=== PATIENT | female | born 1985 | race Caucasian/White ===

== ENCOUNTER 2021-03-30 17:48 | Observation (INO) | payer OTHER, SELFPAY ==
[2021-03-30 18:20] VITALS: BP 105/71; PULSE 89
--- NOTE | 2021-03-30 19:37 | LDADM ---
This patient, Amaya Renee, was admitted to [facility] on 03/30/21 at 17:48. Plans for labor, pain management and were discussed with patient. Patient/family oriented to hospital policies and general routines including ID bracelet, bed and alarms, visiting hours, pain management, procedures, bathroom and other care routines, personal items, smoking policy, room service/diet and guest tray routines, infant security routines, and visiting hours. Patient/Family are encouraged to report perceived risks to care and to ask questions if they do not understand what they are told or what they should do. See OBIX for further documentation.
--- NOTE | 2021-04-06 13:03 | PM.OBTRLD ---
OB - Triage/Final Diagnosis Visit Information Comments/Additional reasons for admission: I have assessed the risk for this patient, Amaya Villa Appleeverardo, and determined that she would benefit from observation care. Final Diagnosis (1) False labor: Code(s): O47.9 - False labor, unspecified Status: Acute
== END 2021-03-30 19:34 | disposition home or self-care (01) ==
PROVIDERS: Admitting Provider Obstetrics & Gynecology; Visit Provider Obstetrics & Gynecology
DX: O47.9 False labor, unspecified (principal); Z3A.00 Weeks of gestation of pregnancy not specified
CPT/HCPCS: G0378; G0379

== ENCOUNTER 2021-04-20 15:31 | Outpatient (RCR) | payer OTHER, SELFPAY ==
[2021-04-13 15:08] VITALS: BP 117/77; PULSE 69
[2021-04-20 16:54] VITALS: BP 110/74; PULSE 80
== END 2021-05-05 10:08 | disposition home or self-care (01) ==
LOC: ANHOBOP 15:31
PROVIDERS: Visit Provider Obstetrics & Gynecology
DX: O24.419 Gestational diabetes mellitus in pregnancy, unspecified control (principal); Z3A.32 32 weeks gestation of pregnancy; Z3A.33 33 weeks gestation of pregnancy
CPT/HCPCS: 59025

== ENCOUNTER 2021-04-22 16:11 | Outpatient (CLI) | payer OTHER, SELFPAY ==
[2021-04-22 16:27] VITALS: BP 119/71; PULSE 91
[2021-04-22 17:07] VITALS: BP 119/71; PULSE 91
--- NOTE | 2021-04-22 17:12 | PC.NURSE ---
1649- called,informed pt came in stating she stood up from sitting in a chair and noticed the chair was wet so she came in to be tested for leaking fluid. Pt stated when she got here that she felt sweaty. ROM plus negative. Instructions given to instruct pt to wear a pad and if it is wet to come back in and follow up with in office by Monday.
== END 2021-04-22 17:00 | disposition home or self-care (01) ==
LOC: ANHOBOP 16:18 → ANHOBPP 16:19
PROVIDERS: Visit Provider Obstetrics & Gynecology
DX: O42.913 Preterm premature rupture of membranes, unspecified as to length of time between rupture and onset of labor, third trimester (principal); Z3A.33 33 weeks gestation of pregnancy
CPT/HCPCS: 59025; 84112; 99199

== ENCOUNTER 2021-04-27 01:00 | Inpatient (IN) | payer OTHER, SELFPAY ==
[2021-04-27] VITALS (21 sets, daily range): BP systolic 94–136; BP diastolic 55–81; PULSE 59–106; RESP 18; TEMP 36.2–36.4; O2SAT 88–100; BMI 34.4
--- NOTE | 2021-04-27 01:32 | LDADM ---
This patient, Amaya Renee, was admitted to Labor/Delivery/Recovery 104 on 04/27/21 at 01:00. Plans for labor, pain management and were discussed with patient. Patient/family oriented to hospital policies and general routines including ID bracelet, bed and alarms, visiting hours, pain management, procedures, bathroom and other care routines, personal items, smoking policy, room service/diet and guest tray routines, security routines, and visiting hours. Patient/Family are encouraged to report perceived risks to care and to ask questions if they do not understand what they are told or what they should do. See OBIX for further documentation.
[2021-04-27 01:48] LABS: Glucose Point of Care 89 mg/dl (65-105)
[2021-04-27 01:55] LABS: Basophils Percent Auto 0.1 % (0.2-1.2); Eosinophils Absolute Auto 0.1 K/mm3 (0-0.3); Eosinophils Percent Auto 1.3 % (0-4.4); Hematocrit 37.6 % (37.0-47.0); Hemoglobin 12.8 g/dL (12.0-15.0); Immature Granulocyte Absolute 0.04 K/mm3 (0.00-0.031); Immature Granulocyte Percent A 0.6 % (0-0.5); Lymphocytes Absolute Auto 1.79 K/mm3 (0.9-3.2); Lymphocytes Percent Auto 26.2 % (18.3-44.2); Mean Platelet Volume 10.5 fl (7.4-10.4); Monocytes Absolute Auto 0.6 K/mm3 (0.1-0.6); Monocytes Percent Auto 8.1 % (2.6-8.5); Neutrophils Absolute Auto 4.3 K/mm3 (1.3-6.7); Neutrophils Percent Auto 63.7 % (45.5-73.1); Platelet Count Result 165 k/mm3 (150-375); Red Cell Distribution Width 13.2 % (11.5-14.5); White Blood Count 6.8 K/mm3 (4.5-10.0)
[2021-04-27 02:04] LABS: Anion Gap 6 mmol/L (8-16); Blood Urea Nitrogen 8 mg/dL (7-17); Calcium 9.5 mg/dL (8.4-10.2); Carbon Dioxide 20 mmol/L (22-30); Chloride 108 mmol/L (98-107); Estimated CRCL calculation 123 ml/min; Estimated Glomerular Filt Rate > 60; Glucose 93 mg/dL (65-110); Potassium 3.4 mmol/L (3.4-5.0); Sodium 134 mmol/L (137-145)
[2021-04-27] MEDS: AMPICILLIN 2 GM/NS 100 ML 2 GM/100 ML BAG IVPB (02:05)
[2021-04-27] MEDS: LACTATED RINGERS 1,000 ML 125 ML IV CONT (02:05)
[2021-04-27] MEDS: BETAMETHASONE SOD PHOS/ACETATE 30 MG/5 ML VIAL 12 MG IM (02:05)
[2021-04-27 02:50] LABS: HIV 1/2 Ab P24 Ag Result Negative (Negative)
[2021-04-27 03:30] LABS: Rubella IgG Antibody 8.9 IU/ML
[2021-04-27 03:50] LABS: Glucose Point of Care 101 mg/dl (65-105)
[2021-04-27 04:21] LABS: Hepatitis B Surface Antigen Negative (Negative)
[2021-04-27] MEDS: fentaNYL CITRATE INJ (*CRX) 100 MCG/2 ML VIAL 50 MCG IV PUSH (05:32)
--- NOTE | 2021-04-27 06:05 | WPDANESEPP ---
Anes - Eval Pre Procedure Procedure: labor epidural Date/Time: 04/27/21 06:05 Surgeon: pio Preop Diagnosis: pain during labor Pre Op Diagnosis: ROM Patient Data Age: 35 Gender: F Height: 1.63 m Weight: 91 kg Last Vital Signs Temp 36.3 C L 04/27/21 03:45 Pulse 69 04/27/21 05:00 BP 136/81 04/27/21 05:00 Allergies Allergy/AdvReac Type Severity Reaction Status Date / Time No Known Allergies Allergy Unverified 04/03/19 19:58 Home Medications Medication Instructions Recorded Confirmed Type loratadine [Allergy Relief 10 mg PO DAILY 03/30/21 03/30/21 History (loratadine)] sertraline 50 mg PO DAILY 03/30/21 03/30/21 History Laboratory Tests 04/27/21 04/27/21 04/27/21 01:38 01:38 01:38 WBC 6.8 K/mm3 K/mm3 (4.5-10.0) RBC 4.00 M/mm3 L M/mm3 (4.2-5.4) Hgb 12.8 g/dL g/dL (12.0-15.0) Hct 37.6 % % (37.0-47.0) MCV 94.0 fl fl (80-100) MCH 32.0 pg pg (26-34) MCHC 34.0 g/dl g/dl (32-36) RDW 13.2 % % (11.5-14.5) Plt Count 165 k/mm3 k/mm3 (150-375) MPV 10.5 fl H fl (7.4-10.4) Immature Gran % (Auto) 0.6 % H % (0-0.5) Neut % (Auto) 63.7 % % (45.5-73.1) Lymph % (Auto) 26.2 % % (18.3-44.2) [place] % (Auto) 8.1 % % (2.6-8.5) Eos % (Auto) 1.3 % % (0-4.4) Baso % (Auto) 0.1 % L % (0.2-1.2) Lymph # (Auto) 1.79 K/mm3 K/mm3 (0.9-3.2) [place] # (Auto) 0.6 K/mm3 K/mm3 (0.1-0.6) Eos # (Auto) 0.1 K/mm3 K/mm3 (0-0.3) Baso # (Auto) 0.0 K/mm3 K/mm3 (0.0-0.1) Abs Immat Gran (auto) 0.04 K/mm3 H K/mm3 (0.00-0.031) Absolute Neuts (auto) 4.3 K/mm3 K/mm3 (1.3-6.7) Absolute Nucleated RBC 0.0 K/mm3 K/mm3 (0.0-0.012) Nucleated RBC % 0.0 % % (0.0-0.2) Sodium Potassium Chloride Carbon Dioxide Anion Gap BUN Creatinine Estim Creat Clear Calc Estimated GFR Glucose POC Capillary Glucose Calcium RPR Pending Hep Bs Antigen HIV 1&2 Ab/P24 Ag 4thGn Negative (Negative) Rubella IgG Antibody Blood Type Antibody Screen 04/27/21 04/27/21 04/27/21 01:38 01:38 01:38 WBC RBC Hgb Hct MCV MCH MCHC RDW Plt Count MPV Immature Gran % (Auto) Neut % (Auto) Lymph % (Auto) [place] % (Auto) Eos % (Auto) Baso % (Auto) Lymph # (Auto) [place] # (Auto) Eos # (Auto) Baso # (Auto) Abs Immat Gran (auto) Absolute Neuts (auto) Absolute Nucleated RBC Nucleated RBC % Sodium Potassium Chloride Carbon Dioxide Anion Gap BUN Creatinine Estim Creat Clear Calc Estimated GFR Glucose POC Capillary Glucose Calcium RPR Hep Bs Antigen Negative (Negative) HIV 1&2 Ab/P24 Ag 4thGn Rubella IgG Antibody 8.9 IU/ML L IU/ML (10 - ) Blood Type A Positive Antibody Screen Negative 04/27/21 04/27/21 04/27/21 01:38 01:43 03:48 WBC RBC Hgb Hct MCV MCH MCHC RDW Plt Count MPV Immature Gran % (Auto) Neut % (Auto) Lymph % (Auto) [place] % (Auto) Eos % (Auto) Baso % (Auto) Lymph # (Auto)
[2021-04-27] MEDS: AMPICILLIN 1 GM/NS 50 ML 1 GM/50 ML BAG IVPB (06:09)
--- NOTE | 2021-04-27 07:21 | WPDHPUPDATE1 ---
History and Physical Update Update Date/Time: 04/27/21 07:21 35 yo at 34w3d who presents in labor. She reports regular contractions. She denies any vaginal bleeding or leakage of fluid. Her has been uncomplicated thus far. History and Physical has been reviewed, including an updated exam of the patient. There are NO changes in the patient's condition. Risks, benefits, and alternatives have been discussed and questions answered. Patient agrees to proceed with procedure. A/P: 35 yo at 34w3d who presents with labor admit to L&D routine admission orders GBS unknown, will start abx regular contractions on toco will give BTMS FHT cat 1 expectant management
--- NOTE | 2021-04-27 07:22 | PM.OBPRVD ---
OB - Delivery Note Procedure Procedure: Patient pushed for a spontaneous vaginal delivery. The fetus was delivered atraumatically and placed on the maternal abdomen. The cord was clamped and cut after 1 minute of life. The cord was double clamped and cut and a segment of cord was collected for cord gases. Cord blood was collected for blood type and Coomb's testing. The placenta delivered spontaneously and was noted to be intact. The perineum was inspected and there were no lacerations noted. The uterus was firm and good hemostasis was noted. The patient and fetus were stable in the delivery room. events: Labor < 37 Weeks Intrapartal events: None Induction method: none Delivery monitor: external FHT Route of delivery: Episiotomy description: None Laceration Description: None Specimen: No Quantitative Blood Loss (ml): 150 Anesthesia type: None Disposition: floor () Complications: No immediate complications [place] Baby Date of : 04/27/21 Time of : 07:08 Weeks of gestation at delivery: 34 gender: Female presentation: vertex position: Right Occiput Anterior Placenta delivery description: Spontaneous cord vessel description: 3 Vessels score one minute: 9 score five minutes: 9
[2021-04-27 07:33] LABS: Glucose Point of Care 160 mg/dl (65-105)
[2021-04-27] MEDS: OXYTOCIN 30 UNITS/NS 500 ML 30 UNITS/500 ML BAG 125 UNITS IV CONT (07:40)
[2021-04-27] MEDS: IBUPROFEN 600 MG TABLET PO ×2 (08:30→18:49)
[2021-04-27] MEDS: ACETAMINOPHEN 325 MG TABLET 650 MG PO (09:25)
[2021-04-27] MEDS: BENZOCAINE 20% AER SPR (*SP) 56 GM CAN 1 SPRAY TOPICAL (09:30)
[2021-04-27] MEDS: WITCH HAZEL 40 PADS 1 PAD TOPICAL (09:30)
--- NOTE | 2021-04-27 09:50 | PC.NURSE ---
Patient transferred to post room # 291 per wheelchair. Support person present. Oriented to unit, room, information board, rooming in, admission packet and security measures. Patient verbalizes understanding.
[2021-04-27 10:30] LABS: Rapid Plasma Reagin Non-Reactive (NonReactive)
[2021-04-27] MEDS: DOCUSATE SODIUM 100 MG CAPSULE PO (17:00)
--- NOTE | 2021-04-27 17:34 | PM.OBPNVD ---
OB - PN: Subj Subjective Date/time seen: 04/27/21 17:34 Baby to be transferred to [facility]. Amaya is doing well and would like to be discharged from the hospital. OB - PN: Obj Data Labs CBC & Chem 7: 04/27/21 01:38 04/27/21 01:38 Labs: Laboratory Results - last 24 hr 04/27/21 04/27/21 04/27/21 01:38 01:38 01:38 WBC 6.8 RBC 4.00 L Hgb 12.8 Hct 37.6 MCV 94.0 MCH 32.0 MCHC 34.0 RDW 13.2 Plt Count 165 MPV 10.5 H Immature Gran % (Auto) 0.6 H Neut % (Auto) 63.7 Lymph % (Auto) 26.2 [place] % (Auto) 8.1 Eos % (Auto) 1.3 Baso % (Auto) 0.1 L Lymph # (Auto) 1.79 [place] # (Auto) 0.6 Eos # (Auto) 0.1 Baso # (Auto) 0.0 Abs Immat Gran (auto) 0.04 H Absolute Neuts (auto) 4.3 Absolute Nucleated RBC 0.0 Nucleated RBC % 0.0 Sodium Potassium Chloride Carbon Dioxide Anion Gap BUN Creatinine Estim Creat Clear Calc Estimated GFR Glucose POC Capillary Glucose Calcium RPR Non-reactive Hep Bs Antigen HIV 1&2 Ab/P24 Ag 4thGn Negative Rubella IgG Antibody Blood Type Antibody Screen 04/27/21 04/27/21 04/27/21 01:38 01:38 01:38 WBC RBC Hgb Hct MCV MCH MCHC RDW Plt Count MPV Immature Gran % (Auto) Neut % (Auto) Lymph % (Auto) [place] % (Auto) Eos % (Auto) Baso % (Auto) Lymph # (Auto) [place] # (Auto) Eos # (Auto) Baso # (Auto) Abs Immat Gran (auto) Absolute Neuts (auto) Absolute Nucleated RBC Nucleated RBC % Sodium Potassium Chloride Carbon Dioxide Anion Gap BUN Creatinine Estim Creat Clear Calc Estimated GFR Glucose POC Capillary Glucose Calcium RPR Hep Bs Antigen Negative HIV 1&2 Ab/P24 Ag 4thGn Rubella IgG Antibody 8.9 L Blood Type A Positive Antibody Screen Negative 04/27/21 04/27/21 04/27/21 01:38 01:43 03:48 WBC RBC Hgb Hct MCV MCH MCHC RDW Plt Count MPV Immature Gran % (Auto) Neut % (Auto) Lymph % (Auto) [place] % (Auto) Eos % (Auto) Baso % (Auto) Lymph # (Auto) [place] # (Auto) Eos # (Auto) Baso # (Auto) Abs Immat Gran (auto) Absolute Neuts (auto) Absolute Nucleated RBC Nucleated RBC % Sodium 134 L Potassium 3.4 Chloride 108 H Carbon Dioxide 20 L Anion Gap 6 L BUN 8 Creatinine 0.60 L Estim Creat Clear Calc 123 Estimated GFR > 60 Glucose 93 POC Capillary Glucose 89 101 Calcium 9.5 RPR Hep Bs Antigen HIV 1&2 Ab/P24 Ag 4thGn Rubella IgG Antibody Blood Type Antibody Screen 04/27/21 06:07 WBC RBC Hgb Hct MCV MCH MCHC RDW Plt Count MPV Immature Gran % (Auto) Neut % (Auto) Lymph % (Auto) [place] % (Auto) Eos % (Auto) Baso % (Auto) Lymph # (Auto) [place] # (Auto) Eos # (Auto) Baso # (Auto) Abs Immat Gran (auto) Absolute Neuts (auto) Absolute Nucleated RBC Nucleated RBC % Sodium Potassium Chloride Carbon Dioxide Anion Gap BUN Creatinine Estim Creat Clear Calc Estimated GFR Glucose POC Capillary Glucose 160 H Calcium RPR Hep Bs Antigen HIV 1&2 Ab/P24 Ag 4thGn Rubella IgG Antibody Blood Type Antibody Screen OB - PN A/P Assessment and Plan (1) labor in third trimester with delivery: Code(s): O60.14X0 - labor third trimester with delivery third trimester, not applicable or unspecified Status: Acute Assessment and Plan: A: PPD#0 after of baby at 34 1/2 weeks gestation. Well-controlled A1DM. Wants to go home. P: Home to f/u 6 weeks. Instructions / precautions reviewed. (2) Gestational diabetes mellitus: Code(s): O24.419 - Gestational diabetes mellitus in , unspecified control Status: Acute
--- NOTE | 2021-04-27 17:37 | PM.OBDSVD ---
DS: Admitting Diagnosis Discharge Date 04/27/21 Admitting Diagnosis IUP at 34 3/7 weeks labor A1DM DS: Discharge Diagnosis Discharge Diagnosis (1) Gestational diabetes mellitus: Code(s): O24.419 - Gestational diabetes mellitus in , unspecified control Status: Acute (2) labor in third trimester with delivery: Code(s): O60.14X0 - labor third trimester with delivery third trimester, not applicable or unspecified Status: Acute OB - DS: Summary OB Procedures : None OB Procedures Intrapartum: Spontaneous Vag Delivery OB Procedures: : None DS: Data Data Completed and Pending Pending studies at discharge: Pending at discharge 04/27/21 07:15 Surgical [PTH] Routine Labs on day of discharge: Labs from last 24 hours 04/27/21 04/27/21 04/27/21 06:07 03:48 01:43 WBC RBC Hgb Hct MCV MCH MCHC RDW Plt Count MPV Immature Gran % (Auto) Neut % (Auto) Lymph % (Auto) [place] % (Auto) Eos % (Auto) Baso % (Auto) Lymph # (Auto) [place] # (Auto) Eos # (Auto) Baso # (Auto) Abs Immat Gran (auto) Absolute Neuts (auto) Absolute Nucleated RBC Nucleated RBC % Sodium Potassium Chloride Carbon Dioxide Anion Gap BUN Creatinine Estim Creat Clear Calc Estimated GFR Glucose POC Capillary Glucose 160 H 101 89 Calcium RPR Hep Bs Antigen HIV 1&2 Ab/P24 Ag 4thGn Rubella IgG Antibody Blood Type Antibody Screen 04/27/21 04/27/21 04/27/21 01:38 01:38 01:38 WBC RBC Hgb Hct MCV MCH MCHC RDW Plt Count MPV Immature Gran % (Auto) Neut % (Auto) Lymph % (Auto) [place] % (Auto) Eos % (Auto) Baso % (Auto) Lymph # (Auto) [place] # (Auto) Eos # (Auto) Baso # (Auto) Abs Immat Gran (auto) Absolute Neuts (auto) Absolute Nucleated RBC Nucleated RBC % Sodium 134 L Potassium 3.4 Chloride 108 H Carbon Dioxide 20 L Anion Gap 6 L BUN 8 Creatinine 0.60 L Estim Creat Clear Calc 123 Estimated GFR > 60 Glucose 93 POC Capillary Glucose Calcium 9.5 RPR Hep Bs Antigen Negative HIV 1&2 Ab/P24 Ag 4thGn Rubella IgG Antibody Blood Type A Positive Antibody Screen Negative 04/27/21 04/27/21 04/27/21 01:38 01:38 01:38 WBC RBC Hgb Hct MCV MCH MCHC RDW Plt Count MPV Immature Gran % (Auto) Neut % (Auto) Lymph % (Auto) [place] % (Auto) Eos % (Auto) Baso % (Auto) Lymph # (Auto) [place] # (Auto) Eos # (Auto) Baso # (Auto) Abs Immat Gran (auto) Absolute Neuts (auto) Absolute Nucleated RBC Nucleated RBC % Sodium Potassium Chloride Carbon Dioxide Anion Gap BUN Creatinine Estim Creat Clear Calc Estimated GFR Glucose POC Capillary Glucose Calcium RPR Non-reactive Hep Bs Antigen HIV 1&2 Ab/P24 Ag 4thGn Negative Rubella IgG Antibody 8.9 L Blood Type Antibody Screen 04/27/21 01:38 WBC 6.8 RBC 4.00 L Hgb 12.8 Hct 37.6 MCV 94.0 MCH 32.0 MCHC 34.0 RDW 13.2 Plt Count 165 MPV 10.5 H Immature Gran % (Auto) 0.6 H Neut % (Auto) 63.7 Lymph % (Auto) 26.2 [place] % (Auto) 8.1 Eos % (Auto) 1.3 Baso % (Auto) 0.1 L Lymph # (Auto) 1.79 [place] # (Auto) 0.6 Eos # (Auto) 0.1 Baso # (Auto) 0.0 Abs Immat Gran (auto) 0.04 H Absolute Neuts (auto) 4.3 Absolute Nucleated RBC 0.0 Nucleated RBC % 0.0 Sodium Potassium Chloride Carbon Dioxide Anion Gap BUN Creatinine Estim Creat Clear Calc Estimated GFR Glucose POC Capillary Glucose Calcium RPR Hep Bs Antigen HIV 1&2 Ab/P24 Ag 4thGn Rubella IgG Antibody Blood Type Antibody Screen Discharge Plan Discharge Attending physician on discharge: Umberto Shepherd
--- NOTE | 2021-04-27 18:51 | PC.NURSE ---
Self care discharge instructions given to pt. including when to return to hospital for follow up visit. Pt. verbalized understanding. No questions or concerns noted. at side. Discharging to go to [facility] to see infant.
[2021-04-29 10:05] VITALS: BP 129/75; PULSE 82; RESP 20; TEMP 36.8; O2SAT 100
== END 2021-04-27 21:00 | disposition home or self-care (01) | DRG 807 ==
LOC: ANHLDR 01:44 → ANHOB2 10:13
PROVIDERS: Admitting Provider Student in an Organized Health Care Education/Training Program; Visit Provider Obstetrics & Gynecology
DX: O60.14X0 Preterm labor third trimester with preterm delivery third trimester, not applicable or unspecified (principal); Z37.0 Single live birth; Z3A.34 34 weeks gestation of pregnancy; O24.420 Gestational diabetes mellitus in childbirth, diet controlled; O99.344 Other mental disorders complicating childbirth; F32.9 Major depressive disorder, single episode, unspecified; O99.214 Obesity complicating childbirth; E66.9 Obesity, unspecified
CPT/HCPCS: 36415; 80048; 82948; 85025; 86592; 86703; 86762; 86850; 86900; 86901; 87340; A9270; G0432; J0290; J0702; J2590; J3010; J7120

== ENCOUNTER 2021-11-10 17:37 | Emergency (ER) | payer OTHER, SELFPAY ==
[2021-11-10 17:42] VITALS: BP 113/72; PULSE 87; RESP 20; TEMP 36.7; O2SAT 99
--- NOTE | 2021-11-10 17:42 | ED.URI ---
HPI - URI/Sore Throat General Chief Complaint: Upper Respiratory Infection Stated Complaint: Sore Throat Time Seen by Provider: 11/10/21 17:38 Source: patient and RN notes reviewed History of Present Illness HPI Narrative: Patient is a 36-year-old female who presents the urgent care with complaints of a sore throat that started this morning. Patient has not taken anything [id number] with the exception of her normal daily Zyrtec. Patient did have Covid in September. Denies of any fever, chills, nausea or vomiting. Denies of any ill contacts. No other acute complaints. No acute distress noted. Patient aware of the plan of care. Some parts of this dictation were generated by voice recognition software and may contain typographical and/or grammatical inaccuracies. Related Data Home Medications Medication Instructions Recorded Confirmed sertraline 100 mg PO DAILY 11/10/21 11/10/21 Allergies Allergy/AdvReac Type Severity Reaction Status Date / Time No Known Allergies Allergy Verified 11/10/21 17:55 Review of Systems Review of Systems: CONSTITUTIONAL: Denies fever, chills, or sweats. EYES: Denies visual changes, redness, or discharge. ENT: Denies rhinorrhea, congestion, or otalgia. Reports of sore throat CARDIOVASCULAR: Denies chest pain, palpitations, or edema. RESPIRATORY: Denies cough or dyspnea. GASTROINTESTINAL: Denies abdominal pain, nausea, vomiting, or diarrhea. GENITOURINARY: Denies dysuria or hematuria. SKIN: Denies rash or itching. MUSCULOSKELETAL: Denies back pain, joint pain, or myalgia. NEUROLOGIC: Denies headache, numbness, or weakness. All other systems reviewed are negative, except as documented in HPI. [facility] Past Medical History Medical History (Updated 11/10/21 @ 18:05 by CARLOS ALBERTO Blair) Depression Obesity (BMI 30.0-34.9) Social History Social History Smoking status: Never smoker Substance use: never Spiritual care concerns: No Comments At the time of my signature, I reviewed and agree with the nursing past medical, surgical, social, and family history. There is no relevant family history pertinent to the patient complaint. Exam Narrative: GENERAL: This is a well-nourished, well-developed patient, in no apparent distress. HEAD: normocephalic, atraumatic. EYES: PERRL. Sclera clear/white. Vision is grossly intact. EARS: External ears normal, auditory canals clear and without drainage, TMs normal without perforation. Hearing grossly intact. NOSE: External nose normal with no obvious nasal discharge, nares without redness, no rhinorrhea. THROAT: Mucous membranes moist, posterior pharynx clear. Mild postnasal drainage NECK: Neck supple, non-tender without lymphadenopathy CARDIOVASCULAR: Regular rate and rhythm without murmurs, gallops, or rubs. RESPIRATORY: Clear to auscultation. Breath sounds equal bilaterally. No wheezes, rales, or rhonchi. SKIN: warm, intact with no suspicious lesions or rash, good texture and turgor. NEURO: awake, alert, and oriented to person, place and time. There were no obvious focal neurologic abnormalities. EXTREMITIES: No clubbing, cyanosis, or edema. Course Course Level of Care: Express Care Visit Vital Signs Vital signs: Vital Signs Temperature 98.1 F 11/10/21 17:42 Pulse Rate 87 11/10/21 17:42 Respiratory Rate 20 11/10/21 17:42 Blood Pressure 113/72 11/10/21 17:42 Pulse Oximetry 99 11/10/21 17:42 Temperature 98.1 F 11/10/21 17:42 Pulse Rate 87 11/10/21 17:42 Respiratory Rate 20 11/10/21 17:42 Blood Pressure 113/72 11/10/21 17:42 Pulse Oximetry 99 11/10/21 17:42 Reviewed MDM - URI/Sore Throat MDM Narrative Medical decision making narrative: Reviewed lab results with the patient. She is aware that strep swab was negative. Educated patient on culture we will call within 72 hours if culture is positive antibiotics necessary. Advised the patient to use an [id number] allergy medication suc
== END 2021-11-10 18:07 | disposition home or self-care (01) ==
PROVIDERS: Emergency Provider Nurse Practitioner Family
DX: J02.9 Acute pharyngitis, unspecified (principal); F32.A Depression, unspecified; E66.9 Obesity, unspecified; Z68.30 Body mass index [BMI] 30.0-30.9, adult
CPT/HCPCS: 87081; 87880; 99213; G0463

== ENCOUNTER 2022-05-10 10:53 | Outpatient (CLI) | payer OTHER, SELFPAY ==
--- NOTE | ~2022-05-10 | XR_ITS ---
XR shoulder RT min 2V DATE: 05/10/2022 11:38 INDICATION: Right shoulder pain, right arm tingling TECHNIQUE: 4 views COMPARISON: None FINDINGS: No fracture or dislocation, periosteal reaction or bone destruction or abnormal soft tissue calcification. Normal alignment at the acromioclavicular and glenohumeral joints. Mild dextro scoliosis of the thoracic spine. IMPRESSION: Negative right shoulder Reviewed, dictated and finalized at location B. IMPRESSION: Negative right shoulder
[2022-05-10 12:15] LABS: Basophils Percent Auto 0.3 % (0.2-1.2); Eosinophils Absolute Auto 0.2 K/mm3 (0-0.3); Eosinophils Percent Auto 2.6 % (0-4.4); Hematocrit 43.8 % (37.0-47.0); Immature Granulocyte Absolute 0.03 K/mm3 (0.00-0.031); Immature Granulocyte Percent A 0.5 % (0-0.5); Lymphocytes Absolute Auto 1.78 K/mm3 (0.9-3.2); Lymphocytes Percent Auto 27.7 % (18.3-44.2); Mean Corpuscular Hemoglobin 29.4 pg (26-34); Mean Corpuscular Volume 91.8 fl (80-100); Mean Platelet Volume 9.3 fl (7.4-10.4); Monocytes Absolute Auto 0.6 K/mm3 (0.1-0.6); Monocytes Percent Auto 9.8 % (2.6-8.5); Neutrophils Absolute Auto 3.8 K/mm3 (1.3-6.7); Neutrophils Percent Auto 59.1 % (45.5-73.1); Platelet Count Result 266 k/mm3 (150-375); Red Blood Count 4.77 M/mm3 (4.2-5.4); Red Cell Distribution Width 12.4 % (11.5-14.5); White Blood Count 6.4 K/mm3 (4.5-10.0)
[2022-05-10 12:32] LABS: Alanine Aminotransferase 21 U/L (6-35); Albumin Level 4.1 g/dL (3.5-5.1); Alkaline Phosphatase 72 U/L (38-126); Anion Gap 10 mmol/L (8-16); Aspartate Amino Transferase 24 U/L (14-36); Bilirubin,Total 0.7 mg/dL (0.2-1.3); Blood Urea Nitrogen 11 mg/dL (7-17); Calcium 8.8 mg/dL (8.4-10.2); Carbon Dioxide 26 mmol/L (22-30); Chloride 102 mmol/L (98-107); Estimated Glomerular Filt Rate > 60; Glucose 99 mg/dL (65-110); Potassium 4.4 mmol/L (3.4-5.0); Sodium 138 mmol/L (137-145)
[2022-05-10 13:00] LABS: Thyroid Stimulating Hormone 0.843 uIU/mL (0.465-4.680)
[2022-05-10 13:04] LABS: Hemoglobin A1C 5.1 % (<5.7)
== END 2022-05-10 10:54 | disposition home or self-care (01) ==
PROVIDERS: PCP Family Medicine; Visit Provider Family Medicine
DX: Z00.00 Encounter for general adult medical examination without abnormal findings (principal); O24.419 Gestational diabetes mellitus in pregnancy, unspecified control; M25.511 Pain in right shoulder; Z13.29 Encounter for screening for other suspected endocrine disorder; Z3A.00 Weeks of gestation of pregnancy not specified
CPT/HCPCS: 36415; 73030; 80053; 83036; 84443; 85025

== ENCOUNTER 2022-06-23 09:00 | Outpatient (RCR) | payer OTHER, SELFPAY ==
--- NOTE | 2022-05-26 17:18 | PTOPEVAL1 ---
Assessment and note entered by Jemima Fields, PT Evaluation Information Assessment Status Evaluation Diagnosis right shoulder pain Onset 04/2022 Subjective Information Pain is on and off for multiple years. 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 Doesn't ice, or use medication, just waits for it to go away. Assessment PT Clinical Summary Pt presents w/ c/o right shoulder pain that has presented on and off for multiple years. Currently is working from home on a computer, graciela 's very poor posture in clinic and as example of how she sits at home. Evaluation shows AROM WFL however with increased pain at end-range flexion, weakness multiple R shoulder muscles, and (+) special testing for right shoulder impingement. Pt will benefit greatly from physical therapy in order to address deficits, reduce pain, and improve function witout pain. Plan of Care Interventions Electrical Stimulation,Hot Pack/Cold Pack,Manual Therapy,Neuro Re-education,Therapeutic Activities, Therapeutic Exercise,Ultrasound PT Services Indicated Yes Treatment Frequency and 1-2x weekly x 4 weeks Duration These treatments will address the objective and functional deficits as defined above. The patient will be advanced safely and appropriately in order for the patient to progress towards his/her prior level of function. Additional exercises will be introduced and as well as a comprehensive home exercise program upon discharge, if needed, ?to ensure carryover of functional gains achieved in the clinic. This treatment plan has been reviewed and agreement upon by the patient.
--- NOTE | 2022-06-23 09:49 | PTOPDC ---
Assessment and note entered by Luis A Fields, PT Evaluation Information Assessment Status Re-evaluation Diagnosis Pain in R shoulder Onset 04/2022 Subjective Information Patient reports that she has been more aware of better posture while at her desk and able to sleep on the R side without waking her up. She reports she would not be in any pain if her little daughter about 1 year old was not sick and needing to be help which put her in bad posture. Reported Pain Level Pain Score 2: Self Report Assessment PT Clinical Summary Amaya is a 36 year old female coming to the clinic for R shoulder pain. She has attended 8 sessions and shown good progress meeting her strength and range of motion goals. Also is more aware of her posture with work and able to sleep on her R shoulder now. The patient reports that she thinks she will be able to do her home exercise program to help keep her in good alignment. She is okay with discharge to home exercise program and will re see the doctor if she has further physical therapy needs. Plan of Care PT Services Indicated No Treatment Frequency and discharge from physical therapy with home exercise Duration program.
== END 2022-06-23 11:19 | disposition home or self-care (01) ==
LOC: ANHPT 09:00
PROVIDERS: PCP Family Medicine; Visit Provider Family Medicine
DX: M25.511 Pain in right shoulder (principal)
CPT/HCPCS: 97014; 97110; 97140; 97161; 97530; G0283

== ENCOUNTER 2023-07-31 18:39 | Observation (INO) | payer OTHER, SELFPAY ==
[2023-07-31] VITALS (22 sets, daily range): BP systolic 103–116; BP diastolic 55–74; PULSE 72–104; O2SAT 95–98
[2023-07-31 19:31] LABS: Appearance Urine Clear (Clear); Bilirubin Urine Negative (Negative); Blood Urine Negative (Negative); Color Urine Yellow (Yellow); Glucose Urine UA Negative (Negative); Ketones Urine Trace mg/dL (Negative); Leukocyte Esterase Ur Negative LEU/UL (Negative); Nitrate Urine Negative (Negative); Protein Urine Negative (Negative); Specific Grav Ur 1.009 (1.001-1.035); Urobilinogen Urine 0.2 mg/dL (<2.0)
[2023-07-31 19:36] LABS: Add Urine Microscopic? NO
--- NOTE | 2023-07-31 19:51 | OBADM ---
This patient, Amaya Renee, admitted to the OB room OB Post 117 for observation. Patient/family oriented to hospital policies and general routines including ID bracelet, bed and alarms, visiting hours, pain management, procedures, bathroom and other care routines, personal items, smoking policy, room service/diet, and visiting hours. Patient/Family are encouraged to report perceived risks to care and to ask questions if they do not understand what they are told or what they should do.
[2023-07-31] MEDS: TERBUTALINE SULFATE 1 MG/ML VIAL 0.25 MG SUB-Q (20:58)
--- NOTE | 2023-08-08 08:17 | PM.OBTRLD ---
OB - Triage/Final Diagnosis Visit Information Comments/Additional reasons for admission: I have assessed the risk for this patient, Amaya Renee, and determined that she would benefit from observation care. Evaluation Laboratory results: Laboratory Tests 07/31/23 19:16 Urine Color Yellow Urine Appearance Clear Urine pH 7.0 Ur Specific [place] 1.009 Urine Protein Negative Urine Glucose (UA) Negative Urine Ketones Trace H Ur Blood (Man) Negative Urine Nitrate Negative Urine Bilirubin Negative Urine Urobilinogen 0.2 Leukocyte Esterase Rfl Negative Final Diagnosis (1) False labor: Code(s): O47.9 - False labor, unspecified Status: Acute
== END 2023-07-31 22:23 | disposition home or self-care (01) ==
PROVIDERS: Admitting Provider Obstetrics & Gynecology; PCP Family Medicine; Visit Provider Obstetrics & Gynecology
DX: O47.03 False labor before 37 completed weeks of gestation, third trimester (principal); Z3A.30 30 weeks gestation of pregnancy
CPT/HCPCS: 81003; 96372; G0378; G0379; J3105

== ENCOUNTER 2023-08-19 16:30 | Emergency (ER) | payer OTHER, SELFPAY ==
[2023-08-19 16:38] VITALS: BP 104/73; PULSE 87; RESP 20; TEMP 35.8; O2SAT 99
--- NOTE | 2023-08-19 17:14 | ED.SKABFB ---
HPI - Skin/Abscess/Foreign Bdy General Chief complaint: Skin/Abscess/Foreign Body Stated complaint: Rash Time Seen by Provider: 08/19/23 16:57 Source: patient and RN notes reviewed Mode of arrival: ambulatory Limitations: no limitations History of Present Illness HPI narrative: Patient presents today complaining of a 3 day history of possible insect bite to the right frontal/parietal scalp with progression to right eye irritation over the last 2 days with some possible bites to the forehead and possible stye to the right upper eyelid since yesterday more irritation and tingling to the scalp with occasional headache. Patient is currently and due in September Related Data Home Medications Medication Instructions Recorded Confirmed sertraline 100 mg tablet 100 mg PO DAILY 11/10/21 08/19/23 cetirizine 10 mg tablet 10 mg PO DAILY 08/19/23 08/19/23 vit#24-iron amino acid 1 tablet PO DAILY 08/19/23 08/19/23 chelat-folic acid 30 mg-975 mcg tablet Allergies Allergy/AdvReac Type Severity Reaction Status Date / Time No Known Allergies Allergy Verified 08/19/23 16:38 Review of Systems Review of Systems: CONSTITUTIONAL: Denies body aches, fever, chills, or sweats. EYES: Denies visual changes, redness, or discharge.+ right eye irritation ENT: Denies rhinorrhea, congestion, sore throat, or otalgia. CARDIOVASCULAR: Denies chest pain, palpitations, or edema. RESPIRATORY: Denies cough or dyspnea. GASTROINTESTINAL: Denies abdominal pain, nausea, vomiting, or diarrhea. GENITOURINARY: Denies dysuria or hematuria. SKIN: + possible insect bite, stye. MUSCULOSKELETAL: Denies back pain, joint pain, or myalgia. NEUROLOGIC: Denies headache, numbness, tingling, or weakness. PSYCH: Denies depression or anxiety. [facility] Past Medical History Medical History Depression False labor Gestational diabetes Gestational diabetes mellitus IUP (intrauterine ), incidental Obesity (BMI 30.0-34.9) labor in third trimester with delivery Family History Family History Father Heart disease Mother Diabetes mellitus Hypertension Depression Social History Social History Social History: Smoking status: Never smoker Second hand tobacco smoke exposure: No Alcohol intake: current Alcohol use details: Occasionally Substance use: never Substance use type: does not use Living arrangements: with family Occupation/Education: occupation Gender identity (if verbalized by the patient): Female Sexual Orientation (if Verbalized by the Patient): Straight or Heterosexual Spiritual care concerns: No Comments At time of signature, I have reviewed and agree with nursing past medical, surgical, social and family history unless otherwise noted. Please see nursing chart for further information. There is no relevant family history pertinent to the presenting complaint Exam Narrative: GENERAL: Well-appearing, well-nourished, and in no acute distress. HEAD: Normocephalic, atraumatic. EYES: EOMI. PERRL. No redness or drainage. Conjunctivae normal. Few faint erythematous bumps to the right upper eyelid. These extend upper to the forehead and into the hairline in into the scalp. No vesicles or crusting. Tender to palpation. See procedure note ENT: Mucous membranes pink and moist. NECK: Normal AROM. MUSCULOSKELETAL: No bony tenderness. EXTREMITIES: Normal range of motion. No edema. SKIN: Warm, dry, no rash. Capillary refill normal. Normal skin turgor. NEURO: No focal deficits. Alert and oriented x3. Gait steady. PSYCH: Normal affect. No signs of depression or anxiety. Course Course Level of Care: Express Care Visit Vital Signs Vital signs: Vital Signs Temperature 96.5 F L 08/19/
== END 2023-08-19 17:24 | disposition home or self-care (01) ==
PROVIDERS: Emergency Provider Nurse Practitioner; PCP Family Medicine
DX: B02.9 Zoster without complications (principal); F32.A Depression, unspecified; E66.9 Obesity, unspecified; Z68.37 Body mass index [BMI] 37.0-37.9, adult
CPT/HCPCS: 99213; G0463

== ENCOUNTER 2023-08-23 20:46 | Observation (INO) | payer OTHER, SELFPAY ==
[2023-08-23] VITALS (31 sets, daily range): BP systolic 109–130; BP diastolic 55–83; PULSE 74–117; O2SAT 97–100
--- NOTE | 2023-08-23 21:56 | PC.NURSE ---
Talked to Dr Rodriguez at this time. Orders given to do a SVE and to give the patient a dose of Terbutaline and to oral hydrate this patient
[2023-08-23] MEDS: TERBUTALINE SULFATE 1 MG/ML VIAL 0.25 MG SUB-Q ×2 (22:06→23:21)
[2023-08-23] MEDS: BETAMETHASONE SOD PHOS/ACETATE 30 MG/5 ML VIAL 12 MG IM (22:37)
[2023-08-24] VITALS (294 sets, daily range): BP systolic 100–148; BP diastolic 48–89; PULSE 83–123; RESP 12–20; TEMP 35.7–37.1; O2SAT 93–100; BMI 37.0
--- NOTE | 2023-08-24 01:02 | OBADM ---
This patient, Amaya Renee, admitted to the OB room [facility] for observation. Patient/family oriented to hospital policies and general routines including ID bracelet, bed and alarms, visiting hours, pain management, procedures, bathroom and other care routines, personal items, smoking policy, room service/diet, and visiting hours. Patient/Family are encouraged to report perceived risks to care and to ask questions if they do not understand what they are told or what they should do.
[2023-08-24] MEDS: LACTATED RINGERS 1,000 ML 75 ML IV CONT ×2 (01:05→14:32)
[2023-08-24] MEDS: MAGNESIUM SULF 4 GM/WATER100ML 4 GM/100 ML BAG IVPB (01:05)
[2023-08-24 01:18] LABS: Hematocrit 37.6 % (37.0-47.0); Hemoglobin 12.7 g/dL (12.0-15.0); Mean Corpuscular HGB Conc 33.8 g/dl (32-36); Mean Corpuscular Hemoglobin 31.3 pg (26-34); Mean Corpuscular Volume 92.6 fl (80-100); Mean Platelet Volume 10.5 fl (7.4-10.4); Platelet Count Result 195 k/mm3 (150-375); Red Blood Count 4.06 M/mm3 (4.2-5.4); Red Cell Distribution Width 13.9 % (11.5-14.5); White Blood Count 11.7 K/mm3 (4.5-10.0)
[2023-08-24 01:29] LABS: Alanine Aminotransferase 59 U/L (6-35); Albumin Level 3.3 g/dL (3.5-5.1); Alkaline Phosphatase 142 U/L (38-126); Anion Gap 11 mmol/L (8-16); Aspartate Amino Transferase 53 U/L (14-36); Bilirubin,Total 0.4 mg/dL (0.2-1.3); Blood Urea Nitrogen 10 mg/dL (7-17); Calcium 9.3 mg/dL (8.4-10.2); Carbon Dioxide 19 mmol/L (22-30); Chloride 103 mmol/L (98-107); Estimated CRCL calculation 148 ml/min; Estimated Glomerular Filt Rate > 60; Glucose 153 mg/dL (65-110); Potassium 3.7 mmol/L (3.4-5.0); Sodium 133 mmol/L (137-145)
[2023-08-24] MEDS: MAGNESIUM SULF 20GM/WATER500ML 500 ML 50 MG IV CONT (01:50)
[2023-08-24 04:37] LABS: Uric Acid 2.6 mg/dL (2.5-7.5)
[2023-08-24 04:52] LABS: Appearance Urine Cloudy (Clear); Bacteria Urine 1+ /hpf; Bilirubin Urine Negative (Negative); Blood Urine Negative (Negative); Color Urine Yellow (Yellow); Creatinine Urine 63.8 mg/dL; Glucose Urine UA Negative (Negative); Ketones Urine Negative (Negative); Leukocyte Esterase Ur Trace LEU/UL (Negative); Need Manual Microscopic Reviewed; Nitrate Urine Negative (Negative); Protein Urine Negative (Negative); RBC Urine 0-2 /hpf (0-2); Specific Grav Ur 1.013 (1.001-1.035); Squamous Epithelial Cell Urine Many /hpf (Few); Total Protein Urine Random 21 mg/dL; Ur Ttl Prot Creatinine Ratio 0.33 mg/mg (0-0.20); Urobilinogen Urine 0.2 mg/dL (<2.0)
[2023-08-24 04:55] LABS: Add Urine Microscopic? YES
--- NOTE | 2023-08-24 08:52 | PM.IMHP ---
H&P: HPI History of Present Illness Date/Time: 08/24/23 08:52 Chief Complaint: Contractions Narrative: 37 y/o at 34 weeks who presented with contractions. Cervix was 3 cm per RN. She did not respond to terbutaline x 2 doses. We began magnesium sulfate and administered betamethasone. Contractions responded well. Review of Systems Review of Systems: All systems reviewed & are unremarkable except as noted in HPI and below PMFSH Past Medical History Medical History (Updated 08/25/23 @ 09:09 by Umberto Shepherd MD) Depression False labor Gestational diabetes Gestational diabetes mellitus IUP (intrauterine ), incidental Obesity (BMI 30.0-34.9) labor in third trimester with delivery Surgical History Surgical History History of cardiac radiofrequency ablation (RFA) History of cholecystectomy Family History Family History Father Heart disease Mother Diabetes mellitus Hypertension Depression Social History Social History Social History: Smoking status: Never smoker Second hand tobacco smoke exposure: No Alcohol intake: current Alcohol use details: Occasionally Substance use: never Substance use type: does not use Living arrangements: with family Occupation/Education: occupation Gender identity (if verbalized by the patient): Female Sexual Orientation (if Verbalized by the Patient): Straight or Heterosexual Spiritual care concerns: No Meds Home Medications and Allergies Home Medications Medication Instructions Recorded Confirmed Type sertraline 100 mg tablet 100 mg PO DAILY 11/10/21 08/24/23 History cetirizine 10 mg tablet 10 mg PO DAILY 08/19/23 08/24/23 History vit#24-iron amino acid 1 tablet PO DAILY 08/19/23 08/24/23 History chelat-folic acid 30 mg-975 mcg tablet valacyclovir 1 gram tablet 1,000 mg PO Q8H 7 days #21 tabs 08/19/23 08/24/23 Rx Allergies Allergy/AdvReac Type Severity Reaction Status Date / Time No Known Allergies Allergy Verified 08/19/23 16:38 Vital Signs Vital Signs - 24 hr 08/23/23 21:16 08/23/23 21:30 08/23/23 21:45 Temperature Pulse Rate 74 80 83 Respiratory Rate Blood Pressure 118/76 119/74 119/76 Pulse Oximetry Oxygen Delivery 08/23/23 22:00 08/23/23 22:07 08/23/23 22:12 Temperature Pulse Rate 85 Respiratory Rate Blood Pressure 119/72 Pulse Oximetry 97 98 Oxygen Delivery 08/23/23 22:15 08/23/23 22:17 08/23/23 22:22 Temperature Pulse Rate 96 Respiratory Rate Blood Pressure 111/79 Pulse Oximetry 98 98 Oxygen Delivery 08/23/23 22:27 08/23/23 22:30 08/23/23 22:32 Temperature Pulse Rate 84 Respiratory Rate Blood Pressure 130/83 Pulse Oximetry 99 99 Oxygen Delivery 08/23/23 22:37 08/23/23 22:42 08/23/23 22:45 Temperature Pulse Rate 84 Respiratory Rate Blood Pressure 126/69 Pulse Oximetry 99 99 Oxygen Delivery 08/23/23 22:47 08/23/23 22:52 08/23/23 22:57 Temperature Pulse Rate Respiratory Rate Blood Pressure Pulse Oximetry 98 100 99 Oxygen Delivery 08/23/23 23:01 08/23/23 23:02 08/23/23 23:07 Temperature Pulse Rate 85 Respiratory Rate Blood Pressure 109/55 L Pulse Oximetry 100 99 Oxygen Delivery 08/23/23 23:12 08/23/23 23:17 08/23/23 23:22 Temperature Pulse Rate Respiratory Rate Blood Pressure Pulse Oximetry 98 98 99 Oxygen Delivery 08/23/23 23:28 08/23/23 23:33 08/23/23 23:38 Temperature Pulse Rate Respiratory Rate Blood Pressure Pulse Oximetry 99 100 99 Oxygen Delivery 08/23/23 23:43 08/23/23 23:48 08/23/23 23:53 Temperature Pulse Rate Respiratory Rate Blood Pressure Pulse Oximetry 97 97 97 Oxygen
--- NOTE | 2023-08-24 08:57 | PC.NURSE ---
0850: Dr. Shepherd at bedside talking with patient and performing a reflex assessment. Orders to give 2nd dose of Celestone at 24 hours, repeat labs now, and continue Magnesium Sulfate throughout the day and night. OB stated he will turn off the Magnesium Sulfate tomorrow morning and reassess. OB stated patient can take her home medications herself while staying in the hospital.
[2023-08-24 09:24] LABS: Platelet Count Result 203 k/mm3 (150-375)
[2023-08-24 09:38] LABS: Alanine Aminotransferase 66 U/L (6-35); Aspartate Amino Transferase 60 U/L (14-36)
[2023-08-24] MEDS: MAGNESIUM SULF 20GM/WATER500ML 500 ML 62.5 MG IV CONT ×2 (10:06→18:10)
--- NOTE | 2023-08-24 10:15 | PC.NURSE ---
1015: notified of patient's lab results. No new orders at this time.
[2023-08-24] MEDS: ACETAMINOPHEN 325 MG TABLET 650 MG PO ×2 (11:13→20:59)
--- NOTE | 2023-08-24 13:10 | PC.NURSE ---
1300: Patient requested nurse at the bedside. Patient stated she is starting to feel fuzzy and dizzy and could barely make it to the bathroom. RN told patient that she can no longer be walking to the bathroom and getting out of bed without staff present. RN brought in a bedside commode, patient is aware she needs to call out when she has to use the restroom. Patient declines chest pain or shortness of breath.
--- NOTE | 2023-08-24 20:32 | PC.NURSE ---
Pt not given [facility] valtrex. Pt has medication bedside from home and Dr. Shepherd gave orders that this was allowed.
[2023-08-24] MEDS: BETAMETHASONE SOD PHOS/ACETATE 30 MG/5 ML VIAL 12 MG IM (22:31)
[2023-08-25] VITALS (67 sets, daily range): BP systolic 108–129; BP diastolic 60–72; PULSE 82–106; RESP 18; TEMP 35.9–36.8; O2SAT 94–98
[2023-08-25] MEDS: MAGNESIUM SULF 20GM/WATER500ML 500 ML 62.5 MG IV CONT (01:59)
[2023-08-25 05:16] LABS: Hematocrit 34.8 % (37.0-47.0); Hemoglobin 11.3 g/dL (12.0-15.0); Mean Corpuscular HGB Conc 32.5 g/dl (32-36); Mean Corpuscular Hemoglobin 30.5 pg (26-34); Mean Corpuscular Volume 93.8 fl (80-100); Mean Platelet Volume 9.8 fl (7.4-10.4); Platelet Count Result 193 k/mm3 (150-375); Red Blood Count 3.71 M/mm3 (4.2-5.4); Red Cell Distribution Width 14.2 % (11.5-14.5); White Blood Count 7.9 K/mm3 (4.5-10.0)
[2023-08-25 05:27] LABS: Alanine Aminotransferase 81 U/L (6-35); Albumin Level 3.2 g/dL (3.5-5.1); Alkaline Phosphatase 148 U/L (38-126); Anion Gap 8 mmol/L (8-16); Aspartate Amino Transferase 64 U/L (14-36); Bilirubin,Total 0.4 mg/dL (0.2-1.3); Blood Urea Nitrogen 9 mg/dL (7-17); Calcium 6.5 mg/dL (8.4-10.2); Carbon Dioxide 22 mmol/L (22-30); Chloride 101 mmol/L (98-107); Estimated CRCL calculation 125 ml/min; Estimated Glomerular Filt Rate > 60; Glucose 205 mg/dL (65-110); Magnesium 6.5 mg/dL (1.6-2.3); Potassium 3.7 mmol/L (3.4-5.0); Sodium 131 mmol/L (137-145)
--- NOTE | 2023-08-25 05:28 | PC.NURSE ---
0500: Per MD orders Magnesium IV was stopped and CMP, CBC and magnesium labs were drawn.
--- NOTE | 2023-08-25 09:11 | PM.OBPNLAB ---
Pain Control Date/time seen: 08/25/23 09:11 Rare contractions. We have stopped the magnesium. She would like to go home today. AVSS ABD soft, nontender, gravid, vertex EXT nontender, no significant edema NEURO: DTR 2+/4 and symmetric in upper and lower extremities. Bedside ultrasound: vertex. Fundal placenta. A: IUP at 34 1/7 weeks with labor, resolved. Mildly elevated transaminases. P: Plan home today on Procardia 10 mg po q 6 hours, collect 24 hour urine for protein, and f/u Monday.
[2023-08-25] MEDS: NIFEdipine 10 MG CAPSULE PO (09:23)
--- NOTE | 2023-08-25 09:28 | PC.NURSE ---
0900: Dr. Shepherd at bedside discussing repeat lab findings with the patient. Patient states she doesn't feel any contractions and feels great. Orders to start 24 hour urine, give on Procardia PO, and discharge patient home at noon today with instructions to take Procardia at home as prescribed and continue 24 hour urine at home. OB gave patient precautions and discharge instructions. OB also used bedside ultrasound to verify vertex position of fetus.
[2023-08-25] MEDS: ACETAMINOPHEN 325 MG TABLET 650 MG PO (10:35)
== END 2023-08-25 11:45 | disposition home or self-care (01) ==
PROVIDERS: Admitting Provider Obstetrics & Gynecology; PCP Family Medicine; Visit Provider Obstetrics & Gynecology
DX: O60.03 Preterm labor without delivery, third trimester (principal); R74.01 Elevation of levels of liver transaminase levels; Z3A.34 34 weeks gestation of pregnancy; Z79.899 Other long term (current) drug therapy
CPT/HCPCS: 36415; 80053; 81001; 82570; 83735; 84156; 84450; 84460; 84550; 85027; 85049; 87086; 87088; 96365; 96366; 96372; A9270; G0378; G0379; J0702; J3105; J3475; J7120

== ENCOUNTER 2023-08-26 12:45 | Outpatient (NON) | payer OTHER, SELFPAY ==
[2023-08-26 13:08] VITALS: BMI 37.0
[2023-08-26 13:28] LABS: Collection Time Urine 24 HOURS
[2023-08-26 13:32] LABS: Total Volume 24 Hour Urine 2650 ml
[2023-08-26 13:43] LABS: Specific Gravity Ur 1.015
[2023-08-26 13:50] LABS: Creatinine Clearance Urine 125.7 ml/min (75-125); Creatinine Urine 47.7 mg/dL; Patient Weight 216 Lbs; Total Protein Urine 24 Hr 397 mg/24hr (28-141); Total Protein Urine Random 15 mg/dL
== END 2023-08-26 12:46 | disposition home or self-care (01) ==
LOC: ANHOBOP 13:05
PROVIDERS: PCP Family Medicine; Visit Provider Obstetrics & Gynecology
DX: Z34.93 Encounter for supervision of normal pregnancy, unspecified, third trimester (principal); Z3A.00 Weeks of gestation of pregnancy not specified
CPT/HCPCS: 81050; 82575; 84156

== ENCOUNTER 2023-08-26 19:07 | Observation (INO) | payer OTHER, SELFPAY ==
[2023-08-26 19:33] VITALS: BP 120/73; PULSE 79
[2023-08-26] MEDS: NIFEdipine 10 MG CAPSULE PO (19:45)
[2023-08-26 19:46] VITALS: BP 121/70; PULSE 67
[2023-08-26 20:00] VITALS: BP 116/65; PULSE 63
[2023-08-26 20:30] VITALS: BP 112/56; PULSE 69
[2023-08-26 21:00] VITALS: BP 113/65; PULSE 74
[2023-08-26 21:31] VITALS: BP 110/61; PULSE 80
--- NOTE | 2023-08-26 22:01 | PC.NURSE ---
2134: Dr. Bagley called and report given. No cervical change and contraction frequency has decreased. Pt is feeling much better. Verbal orders given to change at home nifedipine order to 10 mg every 4 hours. Pt given discharge instructions and instructions on s/s of when to return. Pt has f/u appt in office with Dr. Shepherd on Monday08/28/2023.
--- NOTE | 2023-08-28 11:52 | PM.OBTRLD ---
OB - Triage/Final Diagnosis Visit Information Reason for evaluation: threatened labor Comments/Additional reasons for admission: I have assessed the risk for this patient, Amaya Renee, and determined that she would benefit from observation care.
== END 2023-08-26 22:00 | disposition home or self-care (01) ==
PROVIDERS: Admitting Provider Obstetrics & Gynecology; PCP Family Medicine; Visit Provider Obstetrics & Gynecology Gynecology
DX: O47.03 False labor before 37 completed weeks of gestation, third trimester (principal); Z3A.34 34 weeks gestation of pregnancy
CPT/HCPCS: 81050; 82575; 84156; A9270; G0378; G0379

== ENCOUNTER 2023-08-31 17:06 | Observation (INO) | payer OTHER, SELFPAY ==
[2023-08-31] MEDS: NIFEdipine 10 MG CAPSULE 20 MG PO (20:37)
--- NOTE | 2023-09-22 05:35 | PM.OBTRLD ---
OB - Triage/Final Diagnosis Visit Information Comments/Additional reasons for admission: I have assessed the risk for this patient, Amaya Renee, and determined that she would benefit from observation care.
== END 2023-08-31 21:26 | disposition home or self-care (01) ==
PROVIDERS: Admitting Provider Obstetrics & Gynecology; PCP Family Medicine; Visit Provider Obstetrics & Gynecology
DX: O47.9 False labor, unspecified (principal); Z3A.00 Weeks of gestation of pregnancy not specified
CPT/HCPCS: A9270; G0378; G0379

== ENCOUNTER 2023-09-08 14:04 | Inpatient (IN) | payer OTHER, SELFPAY ==
[2023-09-08] VITALS (19 sets, daily range): BP systolic 95–135; BP diastolic 62–93; PULSE 60–94; TEMP 36.2–36.3
[2023-09-08 16:12] LABS: Basophils Percent Auto 0.2 % (0.2-1.2); Eosinophils Absolute Auto 0.1 K/mm3 (0-0.3); Eosinophils Percent Auto 1.1 % (0-4.4); Hematocrit 41.6 % (37.0-47.0); Hemoglobin 13.5 g/dL (12.0-15.0); Immature Granulocyte Absolute 0.06 K/mm3 (0.00-0.031); Immature Granulocyte Percent A 0.7 % (0-0.5); Lymphocytes Absolute Auto 2.16 K/mm3 (0.9-3.2); Lymphocytes Percent Auto 25.5 % (18.3-44.2); Mean Corpuscular HGB Conc 32.5 g/dl (32-36); Mean Corpuscular Hemoglobin 30.2 pg (26-34); Mean Corpuscular Volume 93.1 fl (80-100); Mean Platelet Volume 10.9 fl (7.4-10.4); Monocytes Absolute Auto 0.6 K/mm3 (0.1-0.6); Monocytes Percent Auto 6.5 % (2.6-8.5); Neutrophils Absolute Auto 5.6 K/mm3 (1.3-6.7); Platelet Count Result 194 k/mm3 (150-375); Red Blood Count 4.47 M/mm3 (4.2-5.4); White Blood Count 8.5 K/mm3 (4.5-10.0)
[2023-09-08] MEDS: LACTATED RINGERS 1,000 ML 125 ML IV CONT ×2 (16:26→23:44)
[2023-09-08] MEDS: OXYTOCIN 30 UNITS/NS 500 ML 30 UNITS/500 ML BAG IV CONT (16:28)
[2023-09-08] MEDS: AMPICILLIN 2 GM/NS 100 ML 2 GM/100 ML BAG IVPB (16:30)
--- NOTE | 2023-09-08 16:38 | LDADM ---
This patient, Amaya Renee, was admitted to Labor/Delivery/Recovery 103 on 09/08/23 at 14:04. Plans for labor, pain management and were discussed with patient. Patient/family oriented to hospital policies and general routines including ID bracelet, bed and alarms, visiting hours, pain management, procedures, bathroom and other care routines, personal items, smoking policy, room service/diet and guest tray routines, security routines, and visiting hours. Patient/Family are encouraged to report perceived risks to care and to ask questions if they do not understand what they are told or what they should do. See OBIX for further documentation.
--- NOTE | 2023-09-08 16:45 | WPDANESEPP ---
Anes - Eval Pre Procedure Procedure: Labor epidural Date/Time: 09/08/23 16:45 Preop Diagnosis: Abdominal pain with contractions Pre Op Diagnosis: ROM Patient Data Age: 37 Gender: F Height: Weight: Last Vital Signs Pulse 84 09/08/23 16:30 BP 126/85 09/08/23 16:30 Allergies Allergy/AdvReac Type Severity Reaction Status Date / Time No Known Allergies Allergy Verified 08/28/23 13:40 Home Medications Medication Instructions Recorded Confirmed Type sertraline 100 mg tablet 150 mg PO DAILY 11/10/21 08/28/23 History cetirizine 10 mg tablet 10 mg PO DAILY 08/19/23 08/28/23 History vit#24-iron amino acid 1 tablet PO DAILY 08/19/23 08/28/23 History chelat-folic acid 30 mg-975 mcg tablet valacyclovir 1 gram tablet 1,000 mg PO Q8H 7 days #21 tabs 08/19/23 08/28/23 Rx nifedipine 10 mg capsule 10 mg PO Q6H #30 caps 08/25/23 08/28/23 Rx Laboratory Tests 09/08/23 16:04 WBC 8.5 K/mm3 (4.5-10.0) RBC 4.47 M/mm3 (4.2-5.4) Hgb 13.5 g/dL (12.0-15.0) Hct 41.6 % (37.0-47.0) MCV 93.1 fl (80-100) MCH 30.2 pg (26-34) MCHC 32.5 g/dl (32-36) RDW 14.0 % (11.5-14.5) Plt Count 194 k/mm3 (150-375) MPV 10.9 H fl (7.4-10.4) Immature Gran % (Auto) 0.7 H % (0-0.5) Neut % (Auto) 66.0 % (45.5-73.1) Lymph % (Auto) 25.5 % (18.3-44.2) Hickman % (Auto) 6.5 % (2.6-8.5) Eos % (Auto) 1.1 % (0-4.4) Baso % (Auto) 0.2 % (0.2-1.2) Lymph # (Auto) 2.16 K/mm3 (0.9-3.2) Hickman # (Auto) 0.6 K/mm3 (0.1-0.6) Eos # (Auto) 0.1 K/mm3 (0-0.3) Baso # (Auto) 0.0 K/mm3 (0.0-0.1) Abs Immat Gran (auto) 0.06 H K/mm3 (0.00-0.031) Absolute Neuts (auto) 5.6 K/mm3 (1.3-6.7) Absolute Nucleated RBC 0.0 K/mm3 (0.0-0.012) Nucleated RBC % 0.0 % (0.0-0.2) RPR Pending : gestational age HCG: positive Patient hx anesthesia problems: none Family hx anesthesia problems: none Results Review: All pre-operative results and documents have been reviewed as part of the pre-operative evaluation. [facility] Past Medical History Medical History Depression False labor Gestational diabetes Gestational diabetes mellitus IUP (intrauterine ), incidental Obesity (BMI 30.0-34.9) labor in third trimester with delivery Surgical History Surgical History History of cardiac radiofrequency ablation (RFA) History of cholecystectomy Family History Family History Father Heart disease Mother Diabetes mellitus Hypertension Depression Social History Social History Social History: Smoking status: Never smoker Second hand tobacco smoke exposure: No Alcohol intake: current Alcohol use details: Occasionally Substance use: never Substance use type: does not use Living arrangements: with family Occupation/Education: occupation Gender identity (if verbalized by the patient): Female Sexual Orientation (if Verbalized by the Patient): Straight or Heterosexual Spiritual care concerns: No Exam Day of Procedure 09/08/23 16:45 Patient weight: obese Airway: Mallampati scale class II
--- NOTE | 2023-09-08 16:56 | PM.IMHP ---
H&P: HPI History of Present Illness Date/Time: 09/08/23 16:56 Chief Complaint: Catalino hope Narrative: 37 y/o at 36 weeks who had gush of clear fluid at 0700. RomPlus positive on her arrival here. Irregular contractions. GBS neg. Had labor and received betamethasone 2 weeks ago. Also has had mildly elevated transaminases, thought to be due to Valtrex treatment for facial shingles. AST and ALT normal in office on 09/05/23. No headache, no visual field change, no epigastric or RUQ pain. Good movement. Review of Systems Review of Systems: All systems reviewed & are unremarkable except as noted in HPI and below PMFSH Past Medical History Medical History Depression False labor Gestational diabetes Gestational diabetes mellitus IUP (intrauterine ), incidental Obesity (BMI 30.0-34.9) labor in third trimester with delivery Surgical History Surgical History History of cardiac radiofrequency ablation (RFA) History of cholecystectomy Family History Family History Father Heart disease Mother Diabetes mellitus Hypertension Depression Social History Social History Social History: Smoking status: Never smoker Second hand tobacco smoke exposure: No Alcohol intake: current Alcohol use details: Occasionally Substance use: never Substance use type: does not use Do You Feel Safe in your Home?: Yes Lack of Transportation: No Lack of Food: Never True Current Housing: I Do Not Have Housing Concerned About Future Housing: No Difficulty Paying Gas/Electric Bills: No Difficulty Paying for Meds: No Currently Unemployed: No Education: Bachelor's Degree Difficulty w/ Childcare or Family Care: No Living arrangements: with family Occupation/Education: occupation Gender identity (if verbalized by the patient): Female Sexual Orientation (if Verbalized by the Patient): Straight or Heterosexual Spiritual care concerns: No Meds Home Medications and Allergies Home Medications Medication Instructions Recorded Confirmed Type sertraline 100 mg tablet 150 mg PO DAILY 11/10/21 08/28/23 History cetirizine 10 mg tablet 10 mg PO DAILY 08/19/23 09/08/23 History vit#24-iron amino acid 1 tablet PO DAILY 08/19/23 08/28/23 History chelat-folic acid 30 mg-975 mcg tablet valacyclovir 1 gram tablet 1,000 mg PO Q8H 7 days #21 tabs 08/19/23 09/08/23 Rx nifedipine 10 mg capsule 10 mg PO Q6H #30 caps 08/25/23 08/28/23 Rx Allergies Allergy/AdvReac Type Severity Reaction Status Date / Time No Known Allergies Allergy Verified 09/08/23 16:49 Vital Signs Vital Signs - 24 hr 09/08/23 15:31 09/08/23 16:00 09/08/23 16:18 Pulse Rate 90 84 94 Blood Pressure 113/84 124/93 H 135/90 Oxygen Delivery 09/08/23 16:30 09/08/23 16:34 Pulse Rate 84 Blood Pressure 126/85 Oxygen Delivery Room Air Exam Const: Orientation/consciousness: patient oriented x3 Other: Well-developed, well-nourished female in no acute distress. Neck: Thyroid: thyroid normal Lymphatic: no lymphadenopathy noted (in neck, axilla or inguinal nodes) Resp: Effort & Inspection: normal respiratory effort Auscultation: clear to auscultation bilaterally Cardio: Rate: regular rate Rhythm: regular rhythm Heart sounds: S1 normal heart sound present and S2 normal heart sound present GI: Other: ABD: Soft, nontender, nondistended, gravid, vertex. NST reactive. TOCO: irregular contractions. No guarding or rebound tenderness. No hepatosplenomegaly. : General: Yes no CVA tenderness Other: Cervix 4/50/-2 per RN, with positive RomPlus. Back/Spine/Pelvis: Back: no CVA tenderness Skin: General skin exam: no
[2023-09-08 17:26] LABS: Alanine Aminotransferase 27 U/L (6-35); Albumin Level 3.5 g/dL (3.5-5.1); Alkaline Phosphatase 156 U/L (38-126); Anion Gap 9 mmol/L (8-16); Aspartate Amino Transferase 25 U/L (14-36); Bilirubin,Total 0.5 mg/dL (0.2-1.3); Blood Urea Nitrogen 10 mg/dL (7-17); Calcium 8.9 mg/dL (8.4-10.2); Carbon Dioxide 18 mmol/L (22-30); Chloride 106 mmol/L (98-107); Estimated Glomerular Filt Rate > 60; Glucose 96 mg/dL (65-110); Potassium 3.8 mmol/L (3.4-5.0); Sodium 133 mmol/L (137-145); Uric Acid 3.7 mg/dL (2.5-7.5)
[2023-09-08] MEDS: AMPICILLIN 1 GM/NS 50 ML 1 GM/50 ML BAG IVPB (20:29)
[2023-09-09] VITALS (100 sets, daily range): BP systolic 72–139; BP diastolic 49–91; PULSE 25–192; RESP 16–18; TEMP 36.2–37.2; O2SAT 81–100; BMI 38.2
[2023-09-09] MEDS: AMPICILLIN 1 GM/NS 50 ML 1 GM/50 ML BAG IVPB ×3 (00:27→08:45)
--- NOTE | 2023-09-09 08:01 | WPDOBADMIT ---
Obstetrics - Admit Note Admission Note: record reviewed. No pertinent additions to the history and/or any subsequent changes in the physical findings that are not consistent with the expected course of the were found. Additions to the history and/or subsequent changes in the physical findings follow. Here at 36 2/7 wks admitted in early labor with SROM 0700 on 09/08. On admit, 4 cm and random contractions. Pitocin and ampicillin started. Slow progress to complete and now pushing.
[2023-09-09] MEDS: LACTATED RINGERS 1,000 ML 125 ML IV CONT ×2 (08:45→10:25)
--- NOTE | 2023-09-09 09:27 | PM.OBPNLAB ---
Pain Control Date/time seen: 09/09/23 09:27 Comments: Patient pushing efforts not effective. still -2 station. Patient exhausted and unable to get into different positions for pushing. Just placed epidural and will increase pitocin, change positions, and let labor down. FHTs Cat I.
--- NOTE | 2023-09-09 11:10 | PM.IMHP ---
H&P: HPI History of Present Illness Date/Time: 09/09/23 11:10 Chief Complaint: Failure to descend Narrative: 37-year-old 3 para 0202 at 36 and 2/7 weeks here with spontaneous rupture of membranes in early labor. Patient has progressed to complete and pushing. After several hours of pushing and resting the remains at the -2 station. It was recommended to proceed with primary for failure to descend. Patient voices understanding and agrees to proceed. Patient questions answered. labs A-positive, rubella immune, RPR negative, hepatitis-B surface antigen negative, NIPT testing negative, group B strep negative. The is complicated by labor requiring magnesium and steroids. Recent shingles off her face. Transient elevation of liver function tests during at that time that has resolved. Elevated 24hour urine protein with normal pressures until admission. Pressures have been slightly elevated throughout this hospitalization. No preeclampsia symptoms. Review of Systems Review of Systems: No complaints PMFSH Past Medical History Medical History (Updated 09/09/23 @ 11:18 by Luisa Bagley MD) Advanced maternal age (AMA) in Depression GERD (gastroesophageal reflux disease) Gestational diabetes with 1 Obesity (BMI 30.0-34.9) (spontaneous vaginal delivery) G1-2017-35 weeks PROM GDMA1 G2-2020-34 weeks 3/7 PROM GDMA1 Surgical History Surgical History History of cardiac radiofrequency ablation (RFA) History of cholecystectomy Family History Family History Father Heart disease Mother Diabetes mellitus Hypertension Depression Social History Social History Social History: Smoking status: Never smoker Second hand tobacco smoke exposure: No Alcohol intake: current Alcohol use details: Occasionally Substance use: never Substance use type: does not use Do You Feel Safe in your Home?: Yes Lack of Transportation: No Lack of Food: Never True Current Housing: I Do Not Have Housing Concerned About Future Housing: No Difficulty Paying Gas/Electric Bills: No Difficulty Paying for Meds: No Currently Unemployed: No Education: Bachelor's Degree Difficulty w/ Childcare or Family Care: No Living arrangements: with family Occupation/Education: occupation Gender identity (if verbalized by the patient): Female Sexual Orientation (if Verbalized by the Patient): Straight or Heterosexual Spiritual care concerns: No Meds Home Medications and Allergies Home Medications Medication Instructions Recorded Confirmed Type sertraline 100 mg tablet 150 mg PO DAILY 11/10/21 08/28/23 History cetirizine 10 mg tablet 10 mg PO DAILY 08/19/23 09/08/23 History vit#24-iron amino acid 1 tablet PO DAILY 08/19/23 08/28/23 History chelat-folic acid 30 mg-975 mcg tablet valacyclovir 1 gram tablet 1,000 mg PO Q8H 7 days #21 tabs 08/19/23 09/08/23 Rx nifedipine 10 mg capsule 10 mg PO Q6H #30 caps 08/25/23 08/28/23 Rx Allergies Allergy/AdvReac Type Severity Reaction Status Date / Time No Known Allergies Allergy Verified 09/08/23 16:49 Vital Signs Vital Signs - 24 hr 09/08/23 15:31 09/08/23 16:00 09/08/23 16:18 Temperature Pulse Rate 90 84 94 Blood Pressure 113/84 124/93 H 135/90 Pulse Oximetry Oxygen Delivery 09/08/23 16:30 09/08/23 17:00 09/08/23 14:30 Temperature 97.1 F L Pulse Rate 84 88 Blood Pressure 126/85 122/85 Pulse Oximetry Oxygen Delivery 09/08/23 17:30 09/08/23 18:01 09/08/23 18:32 Temperature Pulse Rate 81 79 93 Blood Pressure 125/87 124/90 122/75 Pulse Oximetry Oxygen Delivery 09/08/23 19:01 09/08/23 19:31 09/08/23 20:00 Temperature Pulse Rate 7
[2023-09-09] MEDS: AZITHROMYCIN 500 MG/NS 250 ML 500 MG/250 ML BAG 250 MG IVPB (11:20)
[2023-09-09] MEDS: ONDANSETRON INJ 4 MG/2 ML VIAL IV PUSH (11:29)
[2023-09-09] MEDS: ceFAZolin 2 GM/D5W 50 ML 2 GM/50 ML BAG 100 GM (11:43)
--- NOTE | 2023-09-09 12:29 | W.PM.OBCSD ---
OB - Delivery Note Procedure Delivery date: 09/09/23 Pre-op diagnosis: Arrest of Decent and Other (Intrauterine at 36 and 2/7 weeks with spontaneous rupture of membranes) Post-op Diagnosis: Same Induction method: None Delivery augmentation: Pitocin Delivery monitor: External Uterine and Internal FHT Prior to decision for section, [facility] labor guidelines were considered and discussed with the patient and staff. Decision made to proceed with the section.: Yes Procedure Performed: Primary Primary branch: low cervical, transverse Surgeon: Luisa Bagley MD Anesthesia type: Epidural Description of Procedure/Findings: The patient was taken to the operating room and placed under epidural anesthesia in the dorsal supine position with leftward tilt. Patient was prepped and draped in usual sterile fashion. A Pfannenstiel skin incision was made with a scalpel and carried down to the underlying layer of fascia which was nicked in the midline. The incision was extended laterally using Chatman scissors. Ochsner was used to tent the fascia which was then dissected off using sharp and blunt dissection. The rectus muscles are in the midline and the peritoneum entered with a Peon. The incision was extended with blunt traction. Bladder blade is placed and the vesicouterine peritoneum tented and entered with Metzenbaum. The incision was extended laterally and bladder flap created digitally. The bladder blade is replaced. The lower uterine segment was incised in transverse fashion with a scalpel and carried down to the amniotic cavity. Clear fluid is noted. The is deep in the pelvis and noted to be in left occiput posterior position. The head was delivered while guiding the vertex and the operations administrative assistant applying fundal pressure. The shoulders were then delivered with gentle traction and fundal pressure. The nuchal cord x1 was reduced and the true knot is noted. Both are very loose. Delayed cord clamping for 1minute followed by clamping and cutting of the cord. The infant was handed to the waiting bruise trimmer and nursery nurse. The cord blood is taken for gases and labs. The placenta is removed using manual traction. The uterus was cleared of all clots and debris and exteriorized. The uterine incision was closed using 0 Monocryl in a running locked fashion with the same suture used to imbricate and obtain hemostasis. The cul-de-sac is irrigated and the uterus is returned to the abdomen. The gutters are irrigated and the incision again inspected and noted to be hemostatic. The fascia was closed using 0 Vicryl in a running fashion. Subcutaneous tissues are irrigated and made hemostatic using Bovie cautery. The skin incision was closed using 4-0 Vicryl in a subcuticular fashion. Dermaflex was placed over the incision. Sponge, needle, and instrument counts are correct per the OR staff. Patient received Zithromax prior to incision and the Ancef was almost fully infused at the time of the incision. In addition the patient had been receiving ampicillin since admission. Patient was taken to recovery in stable condition. Infant was taken to nursery with the bruise trimmer. Specimen: Yes (placenta) Estimated Blood Loss: 541 Drains: Yes ( Neal) Packing: No Pathology: Yes ( placenta) Complications: No immediate complications Condition: Stable Disposition: Floor [place] Baby Date of : 09/09/23 Weeks of gestation at delivery: 36 (36 2/7) Infant gender: Male Weight (pounds): 9 presentation: vertex position: Left Occiput Posterior Placenta delivery description: Spontaneous Cord Vessel Description: 3 Vessels, Nuchal Cord ( x1 loose), True Knot ( loose) and Delayed Cord Clamping score one minute: 8 score five minutes: 8
--- NOTE | 2023-09-09 12:37 | PM.OBDSVD ---
DS: Admitting Diagnosis Discharge Date 09/12/23 Admitting Diagnosis Intrauterine at 36 and 2/7 weeks spontaneous rupture of membranes in early labor possible preeclampsia with elevated 24hour urine DS: Discharge Diagnosis Discharge Diagnosis (1) Failure of descent in labor, delivered, current hospitalization: Code(s): O62.2 - Other uterine inertia Status: Acute (2) Delivery by section using transverse incision of lower segment of uterus: Code(s): O82 - Encounter for delivery without indication Status: Acute OB - DS: Summary OB Procedures : NST, Ultrasound and PTL Mgmt OB Procedures Intrapartum: low cervical, transverse OB Procedures: : None Peripartum Data Delivery Method: Section Procedures: Procedures Operation Date: 09/09/23 11:30 <No data on this case meets the specified criteria> complications: none Status at Discharge Functional status at discharge: independent ambulation Overall status at discharge: patient is progressing back to baseline Time Spent with Patient Time attestation: Total time spent providing and/or coordinating discharge services: DS: Data Data Completed and Pending Labs on day of discharge: Labs from last 24 hours 09/08/23 09/08/23 17:12 16:04 WBC 8.5 RBC 4.47 Hgb 13.5 Hct 41.6 MCV 93.1 MCH 30.2 MCHC 32.5 RDW 14.0 Plt Count 194 MPV 10.9 H Immature Gran % (Auto) 0.7 H Neut % (Auto) 66.0 Lymph % (Auto) 25.5 [place] % (Auto) 6.5 Eos % (Auto) 1.1 Baso % (Auto) 0.2 Lymph # (Auto) 2.16 [place] # (Auto) 0.6 Eos # (Auto) 0.1 Baso # (Auto) 0.0 Abs Immat Gran (auto) 0.06 H Absolute Neuts (auto) 5.6 Absolute Nucleated RBC 0.0 Nucleated RBC % 0.0 Sodium 133 L Potassium 3.8 Chloride 106 Carbon Dioxide 18 L Anion Gap 9 BUN 10 Creatinine 0.70 Estim Creat Clear Calc Not Reportable Estimated GFR > 60 Glucose 96 Uric Acid 3.7 Calcium 8.9 Total Bilirubin 0.5 AST 25 ALT 27 Alkaline Phosphatase 156 H Total Protein 7.0 Albumin 3.5 RPR Pending Blood Type A Positive Antibody Screen Negative Discharge Plan Discharge Attending physician on discharge: Umberto Shepherd Consulting providers: Luisa Bagley; Phill Monory; Елена Beck; Love Degroot Discharging Clinician: Umberto Shepherd Anticipated Discharge Date/Time: 09/12/23 12:38 Patient Disposition: Home, Self-Care Activity: may shower, may drive after 2 weeks and pelvic rest Diet: regular Wound Care Instructions: incision open to air Discharge Instructions: Call or return if temperature above 100.4? F, increased abdominal pain, increased vaginal bleeding or any new problems. Education: Mom and Baby Guide Given to: Mother Follow-Up: Call your delivering provider's office for an appointment to be seen in: 4 Weeks Mom and baby should come to the [facility] for the follow-up appointment. Appointment Date/Time: September 13, 2023 at 9:00 am What to expect at your follow-up visit: Blood Pressure Check Physical Assessment Call [phone] if you are unable to keep your appointment time. BREAST CARE: * Wear a snug supportive bra. * For engorgement discomfort: Breast Feeding: * Apply warm moist washcloths * Express milk as needed to relieve engorgement * Wear loose clothing * For sore nipples: * Identify correct latch-on * Apply warm moist washcloths before and after nursing * Air dry nipples after nursing * May apply Lansinoh cream to nipples ABDOMINAL INCISION: (if applicable) * Allow incision to air dry * Do NOT use lotions for powders on your incision * When showering, allow soap and water to run over the incision, but do not wash incision * Change your pad frequently throughout the da
--- NOTE | 2023-09-09 12:45 | P.PNAN_ITS ---
Anes - Eval Final PreProcedure Day of Procedure 09/09/23 12:45 Patient weight: obese Heart: regular rate and rhythm Lungs: clear to auscultation Airway: Mallampati scale class II Neurological: alert and oriented Last oral intake: >/= 8 hours (solids >8 hours, has continued liquids ie ice chips &sips) ASA classification: III Emergent: no Anesthetic plan: proceed Anesthesia type and monitoring: regional epidural Results Review: All pre-operative results and documents have been reviewed as part of the pre- operative evaluation. Informed Consent: The patient's anesthetic plan and its attendant risks and benefits were discussed with the patient/family/POA. Questions were solicited and answers provided to the satisfaction of the patient/family/POA.
[2023-09-09] MEDS: OXYTOCIN 30 UNITS/NS 500 ML 30 UNITS/500 ML BAG 125 UNITS IV CONT (13:42)
[2023-09-09] MEDS: LORATADINE 10 MG TABLET PO (14:42)
[2023-09-09] MEDS: MORPHINE SULFATE INJ (*CRX) 10 MG/ML AMP 3 MG IV PUSH (14:50)
[2023-09-09] MEDS: KETOROLAC 30 MG/ML VIAL (*BKC) IV PUSH (15:17)
--- NOTE | 2023-09-09 16:22 | PC.NURSE ---
Patient transferred to post room #292 via stretcher. Support person present. Oriented to unit, room, information board, rooming in, admission packet and security measures. Patient verbalizes understanding.
[2023-09-09] MEDS: HYDROcodone/acetaminophen (*CRX) 5-325 MG TABLET 1 TAB PO (18:33)
[2023-09-10] MEDS: IBUPROFEN 600 MG TABLET PO ×4 (00:32→19:00)
[2023-09-10] MEDS: diphenhydrAMINE HCl CAP 25 MG CAPSULE (00:32)
[2023-09-10] MEDS: HYDROcodone/acetaminophen (*CRX) 5-325 MG TABLET 1 TAB PO ×3 (00:32→11:41)
[2023-09-10 04:24] LABS: Basophils Percent Auto 0.2 % (0.2-1.2); Eosinophils Absolute Auto 0.1 K/mm3 (0-0.3); Hematocrit 34.8 % (37.0-47.0); Hemoglobin 10.8 g/dL (12.0-15.0); Immature Granulocyte Absolute 0.04 K/mm3 (0.00-0.031); Immature Granulocyte Percent A 0.4 % (0-0.5); Lymphocytes Absolute Auto 1.68 K/mm3 (0.9-3.2); Lymphocytes Percent Auto 18.2 % (18.3-44.2); Mean Corpuscular Hemoglobin 29.8 pg (26-34); Mean Corpuscular Volume 95.9 fl (80-100); Mean Platelet Volume 10.7 fl (7.4-10.4); Monocytes Absolute Auto 0.7 K/mm3 (0.1-0.6); Monocytes Percent Auto 7.6 % (2.6-8.5); Neutrophils Absolute Auto 6.7 K/mm3 (1.3-6.7); Neutrophils Percent Auto 72.6 % (45.5-73.1); Platelet Count Result 149 k/mm3 (150-375); Red Blood Count 3.63 M/mm3 (4.2-5.4); White Blood Count 9.3 K/mm3 (4.5-10.0)
[2023-09-10 08:02] VITALS: BP 93/60; PULSE 87; RESP 20; TEMP 35.7; O2SAT 99
[2023-09-10] MEDS: DOCUSATE SODIUM 100 MG CAPSULE PO ×2 (08:02→19:00)
[2023-09-10] MEDS: TETANUS,DIPHTHERIA,AC PERTUSSIS ADULT (0.5 ML) BOOSTRIX IM (08:03)
[2023-09-10] MEDS: LIDOCAINE 5% PATCH 1 PATCH TRANSDERM (08:12)
--- NOTE | 2023-09-10 09:12 | P.PNOB_ITS ---
OB - PN: Subj Subjective Date/time seen: 09/10/23 09:05 Interval history: Doing well. Urinating without difficulty. Denies passing any large clots. Denies dizziness with ambulating. Tolerating po food and fluids. Pumping and hand expressing. in NICU. Desires pass to go visit today. Patient comments: pain well controlled baby status: NICU [place] feeding status: exclusively breast feeding OB - PN: Obj Data Labs 09/10/23 03:30 09/08/23 17:12 Labs: Laboratory Results - last 24 hr 09/10/23 03:30 WBC 9.3 RBC 3.63 L Hgb 10.8 L Hct 34.8 L MCV 95.9 MCH 29.8 MCHC 31.0 L RDW 14.0 Plt Count 149 L MPV 10.7 H Immature Gran % (Auto) 0.4 Neut % (Auto) 72.6 Lymph % (Auto) 18.2 L [place] % (Auto) 7.6 Eos % (Auto) 1.0 Baso % (Auto) 0.2 Lymph # (Auto) 1.68 [place] # (Auto) 0.7 H Eos # (Auto) 0.1 Baso # (Auto) 0.0 Abs Immat Gran (auto) 0.04 H Absolute Neuts (auto) 6.7 Absolute Nucleated RBC 0.0 Nucleated RBC % 0.0 OB - PN A/P Assessment and Plan (1) delivery delivered: Code(s): O82 - Encounter for delivery without indication Status: Acute (2) Pain at surgical incision: Code(s): L76.82 - Other postprocedural complications of skin and subcutaneous tissue Status: Acute (3) At risk for ineffective : Code(s): Z91.89 - Other specified personal risk factors, not elsewhere classified Status: Acute Plan day: 1 Plan: routine care Time Spent With Patient Time: Total time spent is greater than 50% in coordination of care (as documented) at patient's floor/unit and/or counseling patient: Review of Systems Review of Systems: All systems reviewed & are unremarkable except as noted in HPI and below Exam Const: General: cooperative, no acute distress and awake Orientation/consciousness: patient oriented x3 Limitations: no limitations Resp: Effort & Inspection: normal respiratory effort and able to speak in complete sentences Auscultation: clear to auscultation bilaterally Cardio: Rate: regular rate Peripheral pulses: Peripheral pulses 2+ throughout GI: Inspection: normal to inspection Auscultation: normal bowel sounds : General: Yes bladder normal to palpation Speculum Exam - Vagina: vaginal bleeding Bimanual exam- vagina & uterus: bladder normal to palpation OB/external & speculum: vaginal bleeding Other: Fundus firm Skin: General skin exam: normal color Other: Incision C/D/I. Lidocaine patches above and below incision. Neuro: General: patient oriented x3 Cognition (Neuro): normal cognition Speech: normal speech Extrem: General: normal to inspection Psych: Appearance: grossly normal Mental Status: mental status grossly normal Speech and movement: Normal speech and movement present Affect: normal affect Attitude: cooperative Thought process: Normal thought process present
--- NOTE | 2023-09-10 09:16 | WPDANLDPN2 ---
Anes-Prog Note L&D Date/Time: 09/10/23 09:16 Comfortable throughout: labor and section Neuraxial method: epidural Epidural/Spinal procedure site: clean & non-tender Neuro status: Neuro function grossly intact. Cardiovascular status: normal Respiratory status: normal Airway patency: baseline Mental status: baseline Post-Op hydration status: normal Vital Signs: Last Vital Signs Temp 96.2 F L 09/10/23 08:02 Pulse 87 09/10/23 08:02 Resp 20 09/10/23 08:02 BP 93/60 L 09/10/23 08:02 Pulse Ox 99 09/10/23 08:02 O2 Del Method Room Air 09/09/23 23:50 Pain score (VAS): 3 I/O: Intake & Output 09/09/23 09/10/23 09/10/23 23:59 07:59 15:59 Intake Total 1200 500 Output Total 900 1400 600 Balance 300 -900 -600 Post-procedural complaints: pruritis severe, treatment refractory Patient feedback: Patient satisfied with anesthetic care.
--- NOTE | 2023-09-10 09:16 | WPDANLDNPN2 ---
Anes-Prog Note L&D-Neuraxial Date/Time: 09/10/23 09:16 Neuraxial medications: epidural PF morphine Opiod-related complaints: pruritis severe, treatment refractory Patient feedback: Patient satisfied with post-operative pain management.
--- NOTE | 2023-09-10 12:35 | PC.NURSE ---
Patient left the unit via wheelchair with to go out on pass to visit baby at [facility]
[2023-09-10] MEDS: ACETAMINOPHEN 325 MG TABLET 650 MG PO (14:00)
[2023-09-10] MEDS: HYDROcodone/acetaminophen (*CRX) 10-325 MG TABLET 1 TAB PO ×2 (19:00→22:28)
[2023-09-10 20:58] VITALS: BP 122/85; PULSE 80; RESP 20; TEMP 36.7; O2SAT 97
[2023-09-11] MEDS: IBUPROFEN 600 MG TABLET PO ×4 (02:24→20:00)
[2023-09-11] MEDS: HYDROcodone/acetaminophen (*CRX) 5-325 MG TABLET 1 TAB PO ×2 (02:24→13:42)
[2023-09-11 03:24] VITALS: TEMP 36.7
[2023-09-11] MEDS: HYDROcodone/acetaminophen (*CRX) 10-325 MG TABLET 1 TAB PO ×5 (07:47→23:00)
[2023-09-11] MEDS: MULTIVIT/MIN/PREN/FOL AC/IRON TABLET 1 TAB PO (07:47)
[2023-09-11] MEDS: DOCUSATE SODIUM 100 MG CAPSULE PO ×2 (07:47→16:46)
[2023-09-11] MEDS: SIMETHICONE 80 MG TAB.CHEW PO ×3 (07:47→16:46)
[2023-09-11 08:20] VITALS: BP 120/81; PULSE 71; RESP 16; TEMP 36.4; O2SAT 100
--- NOTE | 2023-09-11 08:49 | PC.NURSE ---
[id number] Introductions were made, then consulted with patient to assess needs related to milk production. Mother led the conversation with her?plans to feed?her infant, the?experience so far, history with early deliveries along with pumping/ to feed her infants. Breast pump provided prior to meeting LC due to separation. Instructions given on cleaning, care, usage, that there should be no pain, pumping schedule every 2-3 hours (8 times in 24 hours) 1-2 times at night. Mother is keeping track of pumping schedule with her phone and will call for an assessment with the next pumping session.
--- NOTE | 2023-09-11 10:50 | PC.NURSE ---
[id number] Instructions given on cleaning, care, usage, that there should be no pain, pumping schedule for milk production, collection, and storage of human milk. Patient was assessed for correct placement, flange size (21), to pump for comfort and nipple stretching/stimulation for adequate milk production every 3 hours (8 times in 24 hours) 1-2 times at night. Parents are encouraged to record the pumping schedule on the feeding sheet.?Mother voiced understanding of the education shared along with mom/baby guide and the pump measurement, flange fit handout for additional resource information. Reported to the Primary RN.
--- NOTE | 2023-09-11 12:25 | PM.OBPNVD ---
OB - PN: Subj Subjective Date/time seen: 09/11/23 12:25 Interval history: Doing well. Urinating without difficulty. Denies passing any large clots. Denies dizziness with ambulating. Tolerating po food and fluids. Pumping and hand expressing. in NICU. Desires pass to go visit today. Narrative: Pain OK. Tolerating diet. OB - PN: Obj Data Labs 09/10/23 03:30 09/08/23 17:12 OB - PN A/P Plan day: 2 Comments: A: POD#2, doing well. P: Routine care. Plan home tomorrow. Exam Narrative: AVSS I/O OK ABD soft, nontender, fundus firm. Incision c/d/i. EXT nontender
[2023-09-11 19:10] VITALS: BP 112/73; PULSE 73; RESP 18; TEMP 36.7; O2SAT 97
[2023-09-12] MEDS: HYDROcodone/acetaminophen (*CRX) 10-325 MG TABLET 1 TAB PO ×2 (01:35→05:58)
[2023-09-12] MEDS: IBUPROFEN 600 MG TABLET PO ×2 (02:35→09:10)
[2023-09-12 07:10] VITALS: BP 123/79; PULSE 83; RESP 16; TEMP 36.4; O2SAT 99
--- NOTE | 2023-09-12 09:09 | PM.OBPNVD ---
OB - PN: Subj Subjective Date/time seen: 09/12/23 09:09 Narrative: Pain OK. Tolerating diet. Would like to go home. OB - PN: Obj Data Labs 09/10/23 03:30 09/08/23 17:12 OB - PN A/P Plan Comments: A: POD#3, doing well. P: Home to f/u 4 weeks. Exam Narrative: AVSS ABD soft, nontender, fundus firm. Incision c/d/i. EXT nontender
[2023-09-12] MEDS: HYDROcodone/acetaminophen (*CRX) 5-325 MG TABLET 1 TAB PO (09:10)
[2023-09-13 09:08] VITALS: BP 138/84; PULSE 70; RESP 18; TEMP 36.8; O2SAT 100
[2023-09-14 14:45] LABS: Rapid Plasma Reagin Non-Reactive (NonReactive)
== END 2023-09-12 11:25 | disposition home or self-care (01) | DRG 786 ==
LOC: ANHLDR 09-09 12:39 → ANHOB2 09-09 16:26
PROVIDERS: Obstetrics & Gynecology Gynecology; Admitting Provider Obstetrics & Gynecology; PCP Family Medicine; Visit Provider Obstetrics & Gynecology
PROC: 10D00Z1 Extraction of Products of Conception, Low, Open Approach (ICD-10-PCS; CPT 59514; principal; 2023-09-09 11:30)
DX: O62.2 Other uterine inertia (principal); O60.14X0 Preterm labor third trimester with preterm delivery third trimester, not applicable or unspecified; Z90.49 Acquired absence of other specified parts of digestive tract; O69.81X0 Labor and delivery complicated by cord around neck, without compression, not applicable or unspecified; O99.214 Obesity complicating childbirth; Z3A.36 36 weeks gestation of pregnancy; Z37.0 Single live birth; Z23 Encounter for immunization
CPT/HCPCS: 36415; 80053; 84550; 85025; 86592; 86850; 86900; 86901; 90471; 90686; 90715; A9270; G0008; J0290; J0456; J0690; J1885; J2270; J2274; J2405; J2590; J2795; J7120

== ENCOUNTER 2024-04-03 09:06 | Emergency (ER) | payer OTHER, SELFPAY ==
[2024-04-03 09:13] VITALS: BP 114/66; PULSE 99; RESP 20; TEMP 36.1; O2SAT 100
--- NOTE | 2024-04-03 09:44 | ED.SKABFB ---
HPI - Skin/Abscess/Foreign Bdy General Chief complaint: Skin/Abscess/Foreign Body Stated complaint: poison elmer Time Seen by Provider: 04/03/24 09:15 Source: patient Mode of arrival: ambulatory Limitations: no limitations History of Present Illness HPI narrative: this is a 38-year-old female who presents to the ED with chief complaint of a rash for the past 1-2 days. States that she was pulling weeds over the weekend and then started to develop some itchy rash. states this started around the arm/left AC area. she is nose some swelling and itching around her right eye as well. She has had shingles in this eye in the past but states this is completely different. It is not tracking up to the forehead. Denies pain. Denies fevers, chills. Related Data Home Medications Medication Instructions Recorded Confirmed sertraline 100 mg tablet 150 mg PO DAILY 11/10/21 08/28/23 cetirizine 10 mg tablet 10 mg PO DAILY 08/19/23 09/08/23 vit#24-iron amino acid 1 tablet PO DAILY 08/19/23 08/28/23 chelat-folic acid 30 mg-975 mcg tablet Allergies Allergy/AdvReac Type Severity Reaction Status Date / Time No Known Allergies Allergy Verified 04/03/24 09:16 Review of Systems Review of Systems: All systems as dictated in HPI [facility] Past Medical History Medical History (Updated 04/03/24 @ 09:47 by Sean Jolly PA-C) Advanced maternal age (AMA) in Depression False labor GERD (gastroesophageal reflux disease) Gestational diabetes with 1 Obesity (BMI 30.0-34.9) (spontaneous vaginal delivery) G1-2017-35 weeks PROM GDMA1 G2-2020-34 weeks 3/ PROM GDMA1 Surgical History Surgical History History of cardiac radiofrequency ablation (RFA) History of cholecystectomy Family History Family History Father Heart disease Mother Diabetes mellitus Hypertension Depression Social History Social History Social History: Smoking status: Never smoker Second hand tobacco smoke exposure: No Alcohol intake: current Alcohol use details: Occasionally Substance use: never Substance use type: does not use Do You Feel Safe in your Home?: Yes Lack of Transportation: No Lack of Food: Never True Current Housing: I Do Not Have Housing Concerned About Future Housing: No Difficulty Paying Gas/Electric Bills: No Difficulty Paying for Meds: No Currently Unemployed: No Education: Bachelor's Degree Difficulty w/ Childcare or Family Care: No Living arrangements: with family Occupation/Education: occupation Gender identity (if verbalized by the patient): Female Sexual Orientation (if Verbalized by the Patient): Straight or Heterosexual Spiritual care concerns: No Exam Narrative: GENERAL: Well-appearing, well-nourished, and in no acute distress. HEAD: Normocephalic, atraumatic. EYES: PERRLA and EOMI. ENT: Nares clear, no rhinorrhea or epistaxis. Mucous membranes moist. Oropharynx without tonsillar hypertrophy exudate or other lesions. NECK: Supple. No adenopathy or masses. CHEST: No respiratory distress. Clear to auscultation. No wheezes rales or rhonchi HEART: Regular rate and rhythm. No murmur heard. Normal peripheral pulses. ABDOMEN: Soft, nontender, nondistended, normal active bowel sounds. MSK: Normal range of motion. No edema. SKIN: Scattered maculopapular rash to the extremities as well as right side of the face. Blanching. Nontender. NEURO: Alert and oriented x4. No focal deficits. PSYCH: Normal mood and affect. Course Vital Signs Vital signs: Vital Signs Temperature 97.0 F L 04/03/24 09:13 Pulse Rate 99 04/03/24 09:13 Respiratory Rate 20 04/03/24 09:13 Blood Pressure 114/66 04/03/24 09:13 Pulse Oximetry 100 04/03/24 09:13 Oxygen Delivery [place]
== END 2024-04-03 10:15 | disposition home or self-care (01) ==
PROVIDERS: Emergency Provider Physician Assistant; PCP Family Medicine
DX: L23.9 Allergic contact dermatitis, unspecified cause (principal); E66.9 Obesity, unspecified; Z68.34 Body mass index [BMI] 34.0-34.9, adult; K21.9 Gastro-esophageal reflux disease without esophagitis; F32.A Depression, unspecified; Z90.49 Acquired absence of other specified parts of digestive tract; Z79.899 Other long term (current) drug therapy
CPT/HCPCS: 99283

== ENCOUNTER 2024-10-02 13:05 | Outpatient (CLI) | payer OTHER, SELFPAY ==
--- OUTSIDE RECORDS SUMMARY | 2024-10-02 13:09 | XMS_ITS | Clinical Summary ---
Author Organization [facility] Medical Office Building B Address [address] [place] [id number] Care Team Providers Care Town Manager Name Role Phone Umberto Shepherd MD Unavailable [phone] Ashley Stoll NP Primary Care Provider [phone] Allergies No known active allergies Medications levonorgestrel (MIRENA) IUDIndications: Contraception,P laced February 2018 by missile pad mechanic 1 each by intrauterine route once Active cannabidiol, CBD, (EPIDIOLEX) 100 mg/mL solution Take 10 mg/kg by mouth daily Active busPIRone (BUSPAR) 10 mg tabletIndicatio ns:Generalized Anxiety Disorder Take 1 tablet (10 mg total) by mouth nightly as needed (anxiety) 60 tablet 1 0 Active sertraline (ZOLOFT) 50 mg tabletIndicatio ns:Anxiety with Depression Take 1 tablet (50 mg total) by mouth daily 90 tablet 1 0 Active Active Problems Problem Noted Date Diagnosed Date Chronic allergic rhinitis 09/18/2019 Assessment & Plan (09/18/2019 3:24 PM LIPCOAT SPRAYER): Discussed environmental controls No smoking around patient, no animals in bedroom, keep windows closed, no hanging clothes on the line Take claritin/zyrtec/emily in the morning Flonase at bedtime Use the saline rinses/netipot in nose twice daily and as needed If working or playing outside, may need to do saline rinses when coming in and change clothes right away BMI 27.0-27.9,adult 07/30/2019 Assessment & Plan (09/18/2019 3:25 PM LIPCOAT SPRAYER): Healthy, low carbohydrate lifestyle and exercise for 150min/week recommended Assessment & Plan (07/30/2019 1:37 PM LIPCOAT SPRAYER): Healthy, low carbohydrate lifestyle and exercise for 150min/week recommended SVT (supraventricular tachycardia) 10/31/2018 Overview (10/31/2018): Cardiac ablation October 2015 Symptoms resolved Assessment & Plan (09/18/2019 3:21 PM LIPCOAT SPRAYER): Pt had cardiac ablation October 2015. Pt has palpitations maybe a couple times a month. She usually doesn't notice them. She denies CP or SOB. 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 She stopped taking the ranitidine, encouraged healthy diet and exercise Avoid trigger foods including: carbonated beverages, caffeine, spicy, fried foods, tomatoes, cucumbers, and mint Avoid eating/drinking anything for at least 2 hours before bed. Sleep with bed propped. Assessment & Plan (07/30/2019 1:37 PM LIPCOAT SPRAYER): Discussed with patient that the cough is likely due to acid reflux. We will start patient on ranitidine 150 mg twice daily Continue on current meds, encouraged healthy diet and exercise Avoid trigger foods including: carbonated beverages, caffeine, spicy, fried foods, tomatoes, cucumbers, and mint Don't eat or drink at least 2 hours before bed Sleep propped up Take probiotics daily Thyroid nodule 09/11/2006 Overview (11/23/2016): Thyroid nodule Assessment & Plan (09/18/2019 3:20 PM LIPCOAT SPRAYER): She had ultrasound thyroid 11/09/18 with recommended 1 yr follow up. We will order that for october. Last labs 10/2018 We will order labs Anxiety 09/11/2006 Overview (10/31/2018): Assessment & Plan (09/18/2019 3:25 PM LIPCOAT SPRAYER): Patient reiterated no suicidal thoughts at this time; take medication as directed; contact 911 and go to the ER if becomes suicidal; discussed side effects of medication with patient; encouraged healthy diet and exericise; encouraged patient to see a counselor Discussed/ordered labs, Condition is improving, encouraged healthy, low carbohydrate lifestyle and at least 150min/week of exercise, continue on sertraline 50mg daily Resolved Problems Problem Noted Date Diagnosed Date Resolved Date Endometriosis 01/04/2014 09/18/2019 Overview (10/31/2018): Endometriosis Managed by Dr. Shepherd Assessment & Plan (09/18/2019 3:26 PM LIPCOAT SPRAYER): Pt has not had any issues since having son a couple years ago and IUD placed. Immunizations Name Administration Dates Next Due Influenza, Quadrivalent, Spl it, Preservative Free, Intramuscular 05/27/2019 Influenza, Unspecified 05/25/2018 Td, adsorbed 03/27/2002 Tdap 12/05/2017 Surgical History Surgery Date Site/Laterality Comments CHOLECYSTECTOMY 2011 Cholecystectomy CARDIAC ELECTROPHYSIOLOGY STUDY AND ABLATION cardiac ablation Medical History Medical History Date Comments Anxiety Endometriosis 01/04/2014 Endometriosis Ma naged by Dr. Shepherd Family History Medical History Relation Name Comments Diabetes Mother SOHAIL JACKELIN Diabetes fredis litus; Diabetes type II Mother SOHAIL JACKELIN Diabetes -Type 2; Hyperlipidemia Mother SOHAIL JACKELIN Hyperlipid emia; /High cholesterol; Hypertension Mother SOHAIL JACKELIN Hypertension ; Hypothyroidism Mother SOHAIL JACKELIN Hypothyroi dism; Rheum arthritis Sister Rheumatoid a rthritis; Relation Name Status Comments Father Alive Mother SOHAIL JACKELIN Alive Sister Social History Tobacco Use Types Packs/Day Years Used Date Smoking Tobacco: Never Smokeless Tobacco: Never Alcohol Use Standard Drinks/Week Comments Yes 0 (1 standard drink = 0.6 oz pur e alcohol) PHQ-2 Answer Date Recorded PHQ-2 Score 0 04/11/2019 Comments No Sex and Gender Information Value Date Recorded Sex Assigned at Not on file Legal Sex Female 11:03 AM LIPCOAT SPRAYER Gender Identity Female 03/27/2019 7:53 AM CDT Sexual Orientation Straight 03/27/2019 7 :53 AM CDT Obstetrics History Last Filed Vital Signs Vital Sign Reading Time Taken Comments Blood Pressure 98/66 09/18/2019 2:55 PM LIPCOAT SPRAYER Pulse 81 09/18/2019 2:55 PM LIPCOAT SPRAYER Temperature 37.1 C (98.8 F) 09/18/2019 2:55 PM LIPCOAT SPRAYER Respiratory Rate 12 09/18/2019 2:55 PM LIPCOAT SPRAYER Oxygen Saturation 98% 09/18/2019 2:55 PM LIPCOAT SPRAYER Inhaled Oxygen Concentration - - Weight 73.9 kg (163 lb) 09/18/2019 2:55 PM LIPCOAT SPRAYER Height 162.6 cm (5' 4 ) 09/18/2019 2:55 PM LIPCOAT SPRAYER Body Mass Index 27.98 09/18/2019 2:55 PM LIPCOAT SPRAYER Plan of Treatment Not on file Insurance CLAIMS Care Teams Town Manager Relationship Specialty Start Date End Date Ashley Stoll NP [address] [address] PCP - General Family Medicine 07/26/19 Umberto Shepherd MD [address] [address] Referring Physician Obstetrics and Gynecology 10/31/18
--- OUTSIDE RECORDS SUMMARY | 2024-10-02 13:09 | XMS_ITS | Referral Summary ---
Author Organization [facility] Medical Office Building B Address [address] [place] [address] Care Team Providers Care Recycling Program Manager Name Role Phone Umberto Shepherd MD Unavailable [phone] Ashley Stoll NP Primary Care Provider [phone] Allergies No known active allergies Medications levonorgestrel (MIRENA) IUDIndications: Contraception,P laced February 2018 by gynecological assistant 1 each by intrauterine route once Active [...] 09/18/2019 Assessment & Plan (09/18/2019 3:24 PM TERRITORY MANAGER): Discussed environmental controls No smoking around patient, [...] 07/30/2019 Assessment & Plan (09/18/2019 3:25 PM TERRITORY MANAGER): Healthy, low carbohydrate lifestyle and exercise for 150min/week recommended Assessment & Plan (07/30/2019 1:37 PM TERRITORY MANAGER): Healthy, low carbohydrate lifestyle and exercise for 150min/week recommended SVT (supraventricular tachycardia) 10/31/2018 Overview (10/31/2018): Cardiac ablation October 2015 Symptoms resolved Assessment & Plan (09/18/2019 3:21 PM TERRITORY MANAGER): Pt had cardiac ablation October 2015. Pt has palpitations maybe a couple times a month. She usually doesn't notice them. She denies CP or SOB. 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 She stopped taking the ranitidine, encouraged healthy diet and exercise Avoid trigger foods including: carbonated beverages, caffeine, spicy, fried foods, tomatoes, cucumbers, and mint Avoid eating/drinking anything for at least 2 hours before bed. Sleep with bed propped. Assessment & Plan (07/30/2019 1:37 PM TERRITORY MANAGER): Discussed with patient that the cough is [...] nodule Assessment & Plan (09/18/2019 3:20 PM TERRITORY MANAGER): She had ultrasound thyroid 11/09/18 with recommended 1 yr follow up. We will order that for october. Last labs 10/2018 We will order labs Anxiety 09/11/2006 Overview (10/31/2018): Assessment & Plan (09/18/2019 3:25 PM TERRITORY MANAGER): Patient reiterated no suicidal thoughts at this [...] Shepherd Assessment & Plan (09/18/2019 3:26 PM TERRITORY MANAGER): Pt has not had any issues since having son a couple years ago and IUD placed. Immunizations Name Administration Dates Next Due Influenza, Quadrivalent, Spl it, Preservative Free, Intramuscular 05/27/2019 Influenza, Unspecified 05/25/2018 Td, adsorbed 03/27/2002 Tdap 12/05/2017 Social History Tobacco Use Types Packs/Day Years Used Date Smoking Tobacco: Never Smokeless Tobacco: Never Alcohol Use Standard Drinks/Week Comments Yes 0 (1 standard drink = 0.6 oz pur e alcohol) PHQ-2 Answer Date Recorded PHQ-2 Score 0 04/11/2019 Comments No Sex and Gender Information Value Date Recorded Sex Assigned at Not on file Legal Sex Female 11:03 AM TERRITORY MANAGER Gender Identity Female 03/27/2019 7:53 AM CDT Sexual Orientation Straight 03/27/2019 7: 53 AM CDT Last Filed Vital Signs Vital Sign Reading Time Taken Comments Blood Pressure 98/66 09/18/2019 2:55 PM TERRITORY MANAGER Pulse 81 09/18/2019 2:55 PM TERRITORY MANAGER Temperature 37.1 C (98.8 F) 09/18/2019 2:55 PM TERRITORY MANAGER Respiratory Rate 12 09/18/2019 2:55 PM TERRITORY MANAGER Oxygen Saturation 98% 09/18/2019 2:55 PM TERRITORY MANAGER Inhaled Oxygen Concentration - - Weight 73.9 kg (163 lb) 09/18/2019 2:55 PM TERRITORY MANAGER Height 162.6 cm (5' 4 ) 09/18/2019 2:55 PM TERRITORY MANAGER Body Mass Index 27.98 09/18/2019 2:55 PM TERRITORY MANAGER Plan of Treatment Not on file Insurance CLAIMS Care Teams Recycling Program Manager Relationship Specialty Start Date End Date Ashley Stoll NP [address] [phone] PCP - General Family Medicine 07/26/19 Umberto Shepherd MD [address] [phone] Referring Physician Obstetrics and Gynecology 10/31/18
--- OUTSIDE RECORDS SUMMARY | 2024-10-02 13:09 | XMS_ITS | CONTINUITY OF CARE DOCUMENT ---
Author Name chapincito beckham Address Unknown Organization [facility] Address [address] [address] [place] [address] Phone [phone] Care Team Providers Care Dredgemaster Name Role Phone Drake Fernandez DO Unavailable ANGELINA TONY MD Unavailable JONATHAN PULLIAM DO Unavailable Unavailable PROBLEMS Condition Status Date Provider Notes Family History of Hypertension: active ? Erin Lunsford NP Family History of Hyperlipidemia: active ? Harsh Lunsford BUCKLE STRAP PUNCHER SVT active Drake Fernandez DO Syncope active Drake Fernandez DO Palpitations active Drake Fernandez DO Chest pain-type to be determined active Marcelo Fernandez DO ENCOUNTERS Date Type Provider Location Encounter Diag nosis 4 - 4 In-person encounter Office Visit Drake Fernandez DO [facility] Office Family History of Hyperlipidemia:Family History of Hypertension: 3 - 7 In-person encounter Office Visit Drake Fernandez DO [place] [facility] 8 - 8 In-person encounter Office Visit Drake Fernandez DO [place] [facility] 9 - 0 In-person encounter Office Visit Drake Fernandez DO [facility] Office Chest pain-type to be determinedPalpitationsSyncopeSVT VITAL SIGNS Date Observation Value Provider Body Mass Index (Ratio) 31.75 kg/m2 Erin Lunsford NP blood pressure, diastolic 72 mm[Hg] Satya Whaley blood pressure, systolic 118 mm[Hg] Martín yina [place] oxygen saturation, oximetry 98 % smitha Judd pulse rate 87 /min [facility] respiratory rate E&M 17 /min [facility] weight E&M 185 [lb_av] [facility] height E&M 64 [in_i] [facility] Body Mass Index (Ratio) 27.29 kg/m2 Erin olive Lunsford NP blood pressure, diastolic 62 mm[Hg] Te smitha Judd blood pressure, systolic 112 mm[Hg] Martín yina [place] oxygen saturation, oximetry 98 % [facility] pulse rate 97 /min [facility] blood pressure, resting No Ezio ia Judd respiratory rate E&M 18 /min [facility] weight E&M 159 [lb_av] [facility] height E&M 64 [in_i] [facility], diastolic, standing 60 mm [Hg] Shantanu Akers blood pressure, systolic, standing 100 mm [Hg] Abesolange Akers blood pressure, diastolic 60 mm[Hg] Abe Akers blood pressure, systolic 100 mm[Hg] Abe solange Akers pulse rate 75 /min Shantanu Akers oxygen saturation, oximetry 99 % Abesolange Akers respiratory rate E&M 16 /min Shantanu Akers Body Mass Index (Ratio) 25.54 kg/m2 Thania Akers weight E&M 148.8 [lb_av] Abesolange Akers blood pressure, diastolic, standing 80 mm [Hg] Maryam Lozada'Henry blood pressure, systolic, standing 110 mm [Hg] Maryam Kierra'Henry blood pressure, diastolic 60 mm[Hg] Jaek espino OBrieHenry blood pressure, systolic 112 mm[Hg] Paty RothmanHenry blood pressure, diastolic, supine 60 mm[H g] Maryam [facility] blood pressure, systolic, supine E&M 100 mm[Hg] [facility] pulse rate 87 /min [facility] oxygen saturation, oximetry 97 % [facility] respiratory rate E&M 16 /min [facility] Body Mass Index (Ratio) 26.09 kg/m2 Luis RothmanHenry weight E&M 152 [lb_av] [facility] height E&M 64 [in_i] [facility] ALLERGIES No Known Drug Allergies RESULTS Date Observation Value Provider Reference Range Interpretation Location 0 Nitrite Urine Negative [facility] Negative 0 urobilinogen, urine 0.2 E.U./dL mg/dl [facility] 0.2 - 1.0 0 specific gravity, urine 1.025 [facility] 1.001 - 1.035 0 KETONES, URINE Negative [facility] Negative 0 bilirubin, urine Negative [facility] Negative 0 Glucose Urine Negative [facility] Negative 0 clarity, urine, point Cloudy [facility] Yellow 0 urine color Yellow [facility] yellow to cas 0 prothrombin time (patient) 9.4 s [facility] 9.0 - 11.5 0 international normalized ratio (INR) 0.9 [facility] 0.9 - 1.1 0 urea nitrogen/creatini ne ratio, serum 12.5 [facility] - 0 Estimated Glomerular Filtration Rate (calc) 56.5 (?) [facility] 59.0 - Low 0 chloride, serum 101.6 mmol/L [facility] 98.0 - 107.0 0 potassium, serum 4.6 mmol/L [facility] 3.5 - 5.1 0 sodium, serum 139.0 mmol/L [facility] 136.0 - 145.0 0 creatinine, serum 1.2 mg/dL [facility] 0.5 - 0.9 High 0 carbon dioxide, venous blood 25.0 mmol/L [facility] 22.0 - 29.0 0 calcium, serum 8.8 mg/dL [facility] 8.6 - 10.2 0 urea nitrogen, blood 15.0 mg/dL [facility] 6.0 - 20.0 0 blood glucose, random 90.0 [facility]/dL [facility] - 99.0 0 red blood cell distribution width, size density 41.1 fL [facility] - 0 immature granulocytes, percentage of total cells, blood 0.3 % [facility] - 0 nucleated red blood cells as percent of blood leukocytes 0.0 % [facility] - 0 red blood cell (erythrocyte) count, per high power field 0.0 10*3/UL [facility] - 0 eosinophils as percent of blood leukocytes 3.0 % [facility] - 0 neutrophils as percent of blood leukocytes 55.9 % [facility] 0 Absolute Neutrophils 3.8 CELLS/UL [facility] 1.5 - 7.8 0 basophils as percent of blood leukocytes 0.3 % [facility] - 0 Absolute Basophils 0.0 CELLS/UL [facility] 0.0 - 0.2 0 monocytes as percent of blood leukocytes 8.2 % [facility] - 0 Absolute Monocytes 0.6 CELLS/UL [facility] 0.2 - 1.0 0 lymphocytes as percent of blood leukocytes 32.3 % [facility] - 0 Absolute Lymphocytes 2.2 CELLS/UL [facility] 0.9 - 3.9 0 mean platelet volume 10.2 (?) [facility] - 0 platelet count 207.0 THOUSAND/UL [facility] 100.0 - 400.0 0 mean corpuscular hemoglobin concentration, RBC 32.2 G/DL [facility] 31.0 - 38.0 0 mean corpuscular hemoglobin, RBC 30.4 pg [facility] 25.0 - 35.0 0 mean corpuscular volume, RBC 94.4 fL [facility] 75.0 - 100.0 0 hematocrit, blood 43.8 % [facility] 35.0 - 55.0 0 hemoglobin, blood 14.1 g/dL [facility] 11.5 - 16.5 0 erythrocyte count, whole blood 4.6 MILLION/UL [facility] 3.5 - 5.5 HISTORY OF MEDICATION USE Medication Status Instructions Dates Provider Indications Com ments ZYRTEC ALLERGY TABLET completed Take 1 tab daily - Patito Whaley /IRON TABLET active Take 1 tab daily Patito Whaley [facility] PROBIOTIC ORAL CAPSULE active once daily Maryam Pinzon ORTHO TRI-CYCLEN (28) TABLET completed once daily - Patito Whaley METOPROLOL SUCCINATE ER 25 MG ORAL TABLET EXTENDED RELEASE 24 HOUR completed one tab. daily - Shantanu Akers SOCIAL HISTORY Date Observation Value Provider number of grandchildren Drake Lunsford BUCKLE STRAP PUNCHER social history reviewed E&M revi ewed - no changes required Drake Fernandez DO social history E&M S moking History: Jadyn zain has never smoked. Drake Fernandez DO social history reviewed E&M revi ewed - no changes required Drake Fernandez DO drug use no Drake Fernandez DO chewing tobacco use Never Drake woods DO alcohol use, type beer, 1-2 days/week Marcelo Fernandez DO alcohol use, average drinks per day social Drake Fernandez DO alcohol use yes Drake Fernandez DO smoking status Never smoker Maryam Pinzon FAMILY HISTORY Family Member Condition Mother Family History of Hy pertension: Mother Family History of Hy perlipidemia: Mother Family History of Di abetes: Maternal Grandmother Family History of C oronary Artery Disease: Maternal Grandmother Family History of C oronary Artery Disease: Maternal Grandfather Family History of C oronary Artery Disease: INSURANCE PROVIDERS Payer name Policy type / Coverage type [place] red republican ID WERO [id number] ADVANCE DIRECTIVES Name Date DISCUSSED - NO DECISION MADE TREATMENT PLAN Date Name Performer Electrophysiology fa xed 2-15, lo: s /p ablation 19/03/16, successful with no recurrence had inducible PJRT with 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 discussed possibly of recurrence of SVT (10%) Oleg Lunsford NP Electrophysiology fa xed 10-17, lo: s /p ablation 19/03/16, successful with no recurrence discussed possibly of recurrence of SVT (10%) Oleg Lunsford NP Electrophysiology fa xed 10-, lo: t wice has had episodes of sharp pain, none resently a ppears atypical and pleuritic. had intermittently prior to ablation as well negtive cath Oleg Lunsford NP EP:twice has had epi sodes of sharp pain, none resently a ppears atypical and pleuritic. had intermittently prior to ablation as well Drake Fernandez DO EP:related to SVT, and no recurr ence since ablation Drake Fernandez DO EP:s/p ablation 03/05, successful with no recurrence discussed possibly of recurrence of SVT (10%) Drake Greenck Cardiology:atypical, poss relate d to SVT Drake [facility] Cardiology:unclear if related to SVT or other. [facility]/ablation risks, benefits and success rates w/pt & mother. pt agreeablet o proceed. s till with symptoms on Metoprolol w ill schedule 2D echo & if no issues there, will schedule ablation. e vent monitor with ? atrial tach Drake Fernandez Date Name URINALYSIS, COMPLETE W/REFLEX TO CULTURE PROTHROMBIN TIME WIT H INR BASIC METABOLIC PANE L W/EGFR CBC (INCLUDES DIFF/P LT) HISTORY OF PROCEDURES Procedure Date Procedure Name Provider Procedure Notes S tatus Schedule Followup Drakefabiana Harriscock DO prn completed SNOMED-CT: [id number] Current Medications Documented Drake Haakon DO completed EKG Drake Haakon DO [facility] Schedule Followup Drake Haakon DO 5 months completed SNOMED-CT: [id number] Current Medications Documented Drake Haakon DO completed EKG Drake Haakon DO [facility] Holter, 24 or 48 Drake Haakon DO completed EKG Drake Haakon DO [facility] SNOMED-CT: [id number] Current Medications Documented Drake Haakon DO completed EKG Drake Haakon DO [facility] SNOMED-CT: [id number] 610022 Current Medications Documented Drake Haakon DO completed
--- NOTE | 2024-10-02 14:30 | NEURO_ITS ---
Impression: # Complains of intermittent numbness of left hand. Non-diabetic. ? # Left Carpal Tunnel Syndrome. ? # No ulnar neuropathy. ? # Normal needle/EMG exam. Nerve Conduction Studies Anti Sensory Summary Table ?Stim Site NR Peak (ms) P-T Amp (?V) Site1 Site2 Delta-P (ms) Dist (cm) Kyle (m/s) Left Median Anti Sensory (2-3nd Digit) Wrist ? 4.1 37.8 Wrist 2-3nd Digit 4.1 14.0 34 Wrist ? 4.6 35.9 Wrist 2-3nd Digit 4.1 14.0 34 Left Radial Anti Sensory (Base 1st Digit) Wrist ? 1.8 41.7 Wrist Base 1st Digit 1.8 0.0 Left Ulnar Anti Sensory (5th Digit) Wrist ? 2.3 60.9 Wrist 5th Digit 2.3 14.0 61 Motor Summary Table ?Stim Site NR Onset (ms) O-P Amp (mV) Site1 Site2 Delta-0 (ms) Dist (cm) Kyle (m/s) Left Median Motor (Abd Poll Brev) Wrist ? 4.3 3.1 Elbow Wrist 4.7 32.0 68 Elbow ? 9.0 2.7 Left Ulnar Motor (Abd Dig Minimi) Wrist ? 2.9 8.9 A Elbow Wrist 5.1 30.0 59 A Elbow ? 8.0 7.3 B Elbow Wrist 5.4 0.0 B Elbow ? 8.3 1.2 Axilla B Elbow 5.4 0.0 Axilla ? 2.9 2.4 F Wave Studies ?NR F-Lat (ms) L-R F-Lat (ms) Left Median (Mrkrs) (Abd Poll Brev) ? 26.48 Left Ulnar (Mrkrs) (Abd Dig Min) ? 26.64 EMG ?Side Muscle Nerve Root Ins Act Fibs Amp Dur Recrt Comment Left 1stDorInt Ulnar C8-T1 Nml Nml Nml Nml Nml Left Ext Indicis Radial (Post Int) C7-8 Nml Nml Nml Nml Nml Left Ext Digitorum Radial (Post Int) C7-8 Nml Nml Nml Nml Nml Left BrachioRad Radial C5-6 Nml Nml Nml Nml Nml Left PronatorTeres Median C6-7 Nml Nml Nml Nml Nml Left Abd Poll Brev Median C8-T1 Nml Nml Nml Nml Nml Left ABD Dig Min Ulnar C8-T1 Nml Nml Nml Nml Nml ?? MTDD
== END 2024-10-02 13:06 | disposition home or self-care (01) ==
LOC: ANHNEURO 13:06
PROVIDERS: PCP Family Medicine; Visit Provider Student in an Organized Health Care Education/Training Program
DX: R20.0 Anesthesia of skin (principal); R20.2 Paresthesia of skin; G56.02 Carpal tunnel syndrome, left upper limb
CPT/HCPCS: 95886; 95909

== ENCOUNTER 2025-01-30 08:18 | Outpatient (CLI) | payer OTHER, SELFPAY ==
--- OUTSIDE RECORDS SUMMARY | 2025-01-30 08:26 | XMS_ITS | Referral Summary ---
Author Organization [facility] Building [facility] Address [address] [place] [address] Care Team Providers Care Environmental Inspector Name Role Phone Umberto Shepherd MD Unavailable [phone] Ashley Stoll NP Primary Care Provider Allergies No known active allergies Medications levonorgestrel (MIRENA) IUDIndications: Contraception,P laced February 2018 by child care nurse 1 each by intrauterine route once Active [...] 09/18/2019 Assessment & Plan (09/18/2019 3:24 PM STONE POLISHER [employer]): Discussed environmental controls No smoking around patient, [...] 07/30/2019 Assessment & Plan (09/18/2019 3:25 PM STONE POLISHER HAND): Healthy, low carbohydrate lifestyle and exercise for 150min/week recommended Assessment & Plan (07/30/2019 1:37 PM STONE POLISHER HAND): Healthy, low carbohydrate lifestyle and exercise for 150min/week recommended SVT (supraventricular tachycardia) 10/31/2018 Overview (10/31/2018): Cardiac ablation October 2015 Symptoms resolved Assessment & Plan (09/18/2019 3:21 PM STONE POLISHER HAND): Pt had cardiac ablation October 2015. Pt has palpitations maybe a couple times a month. She usually doesn't notice them. She denies CP or SOB. 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 She stopped taking the ranitidine, encouraged healthy diet and exercise Avoid trigger foods including: carbonated beverages, caffeine, spicy, fried foods, tomatoes, cucumbers, and mint Avoid eating/drinking anything for at least 2 hours before bed. Sleep with bed propped. Assessment & Plan (07/30/2019 1:37 PM STONE POLISHER HAND): Discussed with patient that the cough is [...] nodule Assessment & Plan (09/18/2019 3:20 PM STONE POLISHER HAND): She had ultrasound thyroid 11/09/18 with recommended 1 yr follow up. We will order that for october. Last labs 10/2018 We will order labs Anxiety 09/11/2006 Overview (10/31/2018): Assessment & Plan (09/18/2019 3:25 PM STONE POLISHER [employer]): Patient reiterated no suicidal thoughts at this [...] Shepherd Assessment & Plan (09/18/2019 3:26 PM STONE POLISHER HAND): Pt has not had any issues since having son a couple years ago and IUD placed. Immunizations Immunization Administration Dates Next Due Influenza, Quadrivalent, Spl [...] on file Legal Sex Female 11:03 AM STONE POLISH[employer] Gender Identity Female 03/27/2019 7:53 AM CDT Sexual Orientation Straight 03/27/2019 7: 53 AM CDT Last Filed Vital Signs Vital Sign Reading Time Taken Comments Blood Pressure 98/66 09/18/2019 2:55 PM STONE POLISH[employer] Pulse 81 09/18/2019 2:55 PM STONE POLISH[employer] Temperature 37.1 C (98.8 F) 09/18/2019 2:55 PM STONE POLISHER HAND Respiratory Rate 12 09/18/2019 2:55 PM STONE POLISHER HAND Oxygen Saturation 98% 09/18/2019 2:55 PM STONE POLISHER HAND Inhaled Oxygen Concentration - - Weight 73.9 kg (163 lb) 09/18/2019 2:55 PM STONE POLISHER [employer] Height 162.6 cm (5' 4) 09/18/2019 2:55 PM STONE POLISH[employer] Body Mass Index 27.98 09/18/2019 2:55 PM STONE POLISH[employer] Plan of Treatment Not on file Insurance CLAIMS Care Teams Environmental Inspector Relationship Specialty Start Date End Date Ashley Stoll NP [address] [phone] PCP - General Family Medicine 07/26/19 Umberto Shepherd MD [address] [phone] Referring Physician Obstetrics and Gynecology 10/31/18
--- OUTSIDE RECORDS SUMMARY | 2025-01-30 08:26 | XMS_ITS | Clinical Summary ---
Author Organization [facility] Building [facility] Address [address] [place] [id number] Care Team Providers Care Road Gang Supervisor Name Role Phone Umberto Shepherd MD Unavailable [phone] Ashley Stoll NP Primary Care Provider [phone] Allergies No known active allergies Medications levonorgestrel (MIRENA) IUDIndications: Contraception,P laced February 2018 by retail inventory control clerk 1 each by intrauterine route once Active [...] 09/18/2019 Assessment & Plan (09/18/2019 3:24 PM DIRECTOR OF FINANCIAL AID): Discussed environmental controls No smoking around patient, [...] 07/30/2019 Assessment & Plan (09/18/2019 3:25 PM DIRECTOR OF FINANCIAL AID): Healthy, low carbohydrate lifestyle and exercise for 150min/week recommended Assessment & Plan (07/30/2019 1:37 PM DIRECTOR OF FINANCIAL AID): Healthy, low carbohydrate lifestyle and exercise for 150min/week recommended SVT (supraventricular tachycardia) 10/31/2018 Overview (10/31/2018): Cardiac ablation October 2015 Symptoms resolved Assessment & Plan (09/18/2019 3:21 PM DIRECTOR OF FINANCIAL AID): Pt had cardiac ablation October 2015. Pt has palpitations maybe a couple times a month. She usually doesn't notice them. She denies CP or SOB. 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 She stopped taking the ranitidine, encouraged healthy diet and exercise Avoid trigger foods including: carbonated beverages, caffeine, spicy, fried foods, tomatoes, cucumbers, and mint Avoid eating/drinking anything for at least 2 hours before bed. Sleep with bed propped. Assessment & Plan (07/30/2019 1:37 PM DIRECTOR OF FINANCIAL AID): Discussed with patient that the cough is [...] nodule Assessment & Plan (09/18/2019 3:20 PM DIRECTOR OF FINANCIAL AID): She had ultrasound thyroid 11/09/18 with recommended 1 yr follow up. We will order that for october. Last labs 10/2018 We will order labs Anxiety 09/11/2006 Overview (10/31/2018): Assessment & Plan (09/18/2019 3:25 PM DIRECTOR OF FINANCIAL AID): Patient reiterated no suicidal thoughts at this [...] Shepherd Assessment & Plan (09/18/2019 3:26 PM DIRECTOR OF FINANCIAL AID): Pt has not had any issues since [...] on file Legal Sex Female 11:03 AM DIRECTOR OF FINANCIAL AID Gender Identity Female 03/27/2019 7:53 AM CDT Sexual Orientation Straight 03/27/2019 7: 53 AM CDT Obstetrics History Last Filed Vital Signs Vital Sign Reading Time Taken Comments Blood Pressure 98/66 09/18/2019 2:55 PM DIRECTOR OF FINANCIAL AID Pulse 81 09/18/2019 2:55 PM DIRECTOR OF FINANCIAL AID Temperature 37.1 C (98.8 F) 09/18/2019 2:55 PM DIRECTOR OF FINANCIAL AID Respiratory Rate 12 09/18/2019 2:55 PM DIRECTOR OF FINANCIAL AID Oxygen Saturation 98% 09/18/2019 2:55 PM DIRECTOR OF FINANCIAL AID Inhaled Oxygen Concentration - - Weight 73.9 kg (163 lb) 09/18/2019 2:55 PM DIRECTOR OF FINANCIAL AID Height 162.6 cm (5' 4) 09/18/2019 2:55 PM DIRECTOR OF FINANCIAL AID Body Mass Index 27.98 09/18/2019 2:55 PM DIRECTOR OF FINANCIAL AID Plan of Treatment Not on file Insurance CLAIMS Care Teams Road Gang Supervisor Relationship Specialty Start Date End Date Ashley Stoll NP [address] [id number] PCP - General Family Medicine 07/26/19 Umberto Shepherd MD [address] [phone] Referring Physician Obstetrics and Gynecology 10/31/18
[2025-01-30 08:49] LABS: Basophils Percent Auto 0.3 % (0.2-1.2); Eosinophils Absolute Auto 0.2 K/mm3 (0-0.3); Eosinophils Percent Auto 2.3 % (0-4.4); Hematocrit 40.9 % (37.0-47.0); Hemoglobin 13.1 g/dL (12.0-15.0); Immature Granulocyte Absolute 0.03 K/mm3 (0.00-0.031); Immature Granulocyte Percent A 0.5 % (0-0.5); Lymphocytes Absolute Auto 1.47 K/mm3 (0.9-3.2); Lymphocytes Percent Auto 22.5 % (18.3-44.2); Mean Corpuscular Hemoglobin 29.2 pg (26-34); Mean Corpuscular Volume 91.1 fl (80-100); Mean Platelet Volume 8.7 fl (7.4-10.4); Monocytes Absolute Auto 0.7 K/mm3 (0.1-0.6); Monocytes Percent Auto 10.1 % (2.6-8.5); Neutrophils Absolute Auto 4.2 K/mm3 (1.3-6.7); Neutrophils Percent Auto 64.3 % (45.5-73.1); Platelet Count Result 305 k/mm3 (150-375); Red Blood Count 4.49 M/mm3 (4.2-5.4); Red Cell Distribution Width 12.4 % (11.5-14.5); White Blood Count 6.5 K/mm3 (4.5-10.0)
[2025-01-30 08:59] LABS: Alanine Aminotransferase 16 U/L (6-35); Albumin Level 4.1 g/dL (3.5-5.1); Alkaline Phosphatase 80 U/L (38-126); Anion Gap 6 mmol/L (4-12); Aspartate Amino Transferase 22 U/L (14-36); Bilirubin,Total 0.6 mg/dL (0.2-1.3); Blood Urea Nitrogen 12 mg/dL (7-17); Calcium 9.1 mg/dL (8.4-10.2); Carbon Dioxide 27 mmol/L (22-30); Chloride 102 mmol/L (98-107); Cholesterol 157 mg/dL (0-200); Estimated Glomerular Filt Rate > 60; Glucose 100 mg/dL (65-110); HDL Direct 49 mg/dL; Potassium 4.6 mmol/L (3.4-5.0); Sodium 135 mmol/L (137-145); Total Protein 7.4 g/dL (6.3-8.2); Triglycerides 60 mg/dL (<150)
[2025-01-30 09:10] LABS: LDL Cholesterol Direct 78 mg/dL
[2025-01-30 09:23] LABS: Hemoglobin A1C 5.4 % (<5.7)
[2025-01-30 09:29] LABS: Thyroid Stimulating Hormone 0.573 uIU/mL (0.465-4.680)
== END 2025-01-30 08:19 | disposition home or self-care (01) ==
LOC: ANHLAB 08:19
PROVIDERS: PCP Family Medicine; Visit Provider Student in an Organized Health Care Education/Training Program
DX: Z13.220 Encounter for screening for lipoid disorders (principal); Z13.29 Encounter for screening for other suspected endocrine disorder; F32.9 Major depressive disorder, single episode, unspecified; Z86.32 Personal history of gestational diabetes
CPT/HCPCS: 36415; 80053; 80061; 83036; 84443; 85025